=== PATIENT | female | born 1955 | race Caucasian/White ===

== ENCOUNTER 2021-05-20 02:50 | Emergency (ER) | payer MEDICARE, MEDICAID ==
[~2021-05-20] VITALS: Ht 172.7 cm; Wt 818.7 kg
[2021-05-20 07:54] VITALS: BP 120/82
[2021-05-20] MEDS ORDERED: KETOROLAC TROMETH 60MG/2ML VIAL IM ONE (08:00)
== END 2021-05-20 08:16 | disposition home or self-care (01) ==
LOC: ER 02:50
DX: S20.212A Contusion of left front wall of thorax, initial encounter (principal); J44.9 Chronic obstructive pulmonary disease, unspecified; W22.8XXA Striking against or struck by other objects, initial encounter; Y93.89 Activity, other specified; Y92.89 Other specified places as the place of occurrence of the external cause; Y99.8 Other external cause status
CPT/HCPCS: 71045; 93005; 96372; 99283; J1885

== ENCOUNTER → 2021-12-26 | Outpatient (CLI) | payer MEDICARE, MEDICAID ==
[2021-12-26 12:58] LABS: Basophils # (auto) 0 10 ^3/uL (0-0.2); Basophils % (auto) 0.7 % (0.0-2.0); Eosinophils # (auto) 0.1 10 ^3/uL (0-0.8); Hematocrit 44.5 % (36.0-46.0); Hemoglobin 14.8 g/dL (12.2-16.2); Lymphocytes % (auto) 21.3 % (10.0-50.0); Mean Corpuscular Hemoglobin 32.2 pg (28.0-32.0); Mean Corpuscular Hgb Conc. 33.4 g/dL (32.0-36.0); Mean Corpuscular Volume 96.6 fL (80.0-100.0); Monocytes # (auto) 0.4 10 ^3/uL (0-1.3); Monocytes % (auto) 8.2 % (0.0-12.0); Neutrophils # (auto) 3.3 10 ^3/uL (1.6-8.6); Neutrophils % (auto) 66.8 % (37.0-80.0); Nucleated Red Blood Cells % 0.1 %; Red Blood Cells 4.61 10^6/uL (4.0-5.20); Red Cell Distribution Width 12.9 % (11.8-14.3); White Blood Cell 4.9 10^3/uL (4.4-10.8)
[2021-12-26 13:33] LABS: Calcium 8.9 mg/dL (8.5-10.1); Potassium 4.3 mmol/L (3.5-5.1)
[2021-12-26 13:39] LABS: Albumin 3.7 g/dL (3.4-5.0); BUN/Creatinine Ratio 10.4; Bilirubin, Total 0.6 mg/dL (0.2-1.0); Total Protein 7.3 g/dL (6.4-8.2)
== END | disposition home or self-care (01) ==
LOC: LAB 08:11
PROVIDERS: ATTEND Student in an Organized Health Care Education/Training Program
DX: Z00.01 Encounter for general adult medical examination with abnormal findings (principal)
CPT/HCPCS: 36415; 80053; 80061; 83036; 84443; 85025

== ENCOUNTER → 2022-01-03 | Outpatient (CLI) | payer MEDICARE, MEDICAID | END | disposition home or self-care (01) | LOC: LAB 14:34 | PROVIDERS: ATTEND Student in an Organized Health Care Education/Training Program | DX: Z00.01 Encounter for general adult medical examination with abnormal findings (principal) | CPT/HCPCS: 82274 ==

== ENCOUNTER → 2022-03-02 | Outpatient (CLI) | payer OTHER, MEDICAID, MEDICARE ==
[2022-03-02 10:53] LABS: INR 1.02 (0.9-1.15)
[2022-03-02 10:57] LABS: Basophils # (auto) 0 10 ^3/uL (0-0.2); Basophils % (auto) 0.8 % (0.0-2.0); Eosinophils # (auto) 0.1 10 ^3/uL (0-0.8); Eosinophils % (auto) 2.2 % (0.0-7.0); Hematocrit 37.1 % (36.0-46.0); Hemoglobin 12.4 g/dL (12.2-16.2); Lymphocytes # (auto) 1.6 10 ^3/uL (0.4-5.4); Lymphocytes % (auto) 32.5 % (10.0-50.0); Mean Corpuscular Hemoglobin 31.3 pg (28.0-32.0); Mean Corpuscular Hgb Conc. 33.6 g/dL (32.0-36.0); Mean Corpuscular Volume 93.2 fL (80.0-100.0); Monocytes # (auto) 0.7 10 ^3/uL (0-1.3); Monocytes % (auto) 13.4 % (0.0-12.0); Neutrophils # (auto) 2.5 10 ^3/uL (1.6-8.6); Neutrophils % (auto) 51.1 % (37.0-80.0); Nucleated Red Blood Cells % 0.2 %; Red Blood Cells 3.98 10^6/uL (4.0-5.20); Red Cell Distribution Width 13.7 % (11.8-14.3)
[2022-03-02 11:14] LABS: Potassium 4.2 mmol/L (3.5-5.1)
[2022-03-02 11:16] LABS: BUN/Creatinine Ratio 8.3; Calcium 9.7 mg/dL (8.5-10.1)
== END | disposition home or self-care (01) ==
LOC: LAB 10:17
PROVIDERS: ATTEND Student in an Organized Health Care Education/Training Program
DX: R91.1 Solitary pulmonary nodule (principal); Z01.812 Encounter for preprocedural laboratory examination
CPT/HCPCS: 36415; 80048; 85025; 85610; 85730

== ENCOUNTER → 2022-04-24 | Outpatient (CLI) | payer MEDICARE, MEDICAID ==
[2022-04-24 10:08] LABS: Albumin 3.8 g/dL (3.4-5.0); Calcium 9.2 mg/dL (8.5-10.1); Potassium 4.1 mmol/L (3.5-5.1)
[2022-04-24 10:11] LABS: BUN/Creatinine Ratio 7.6; Bilirubin, Total 0.4 mg/dL (0.2-1.0); Total Protein 7.8 g/dL (6.4-8.2)
[2022-04-24 10:27] LABS: Basophils # (auto) 0 10 ^3/uL (0-0.2); Basophils % (auto) 0.6 % (0.0-2.0); Eosinophils # (auto) 0.1 10 ^3/uL (0-0.8); Eosinophils % (auto) 2.5 % (0.0-7.0); Hematocrit 37.2 % (36.0-46.0); Hemoglobin 12.2 g/dL (12.2-16.2); Lymphocytes # (auto) 1.6 10 ^3/uL (0.4-5.4); Lymphocytes % (auto) 30.4 % (10.0-50.0); Mean Corpuscular Hemoglobin 31.1 pg (28.0-32.0); Mean Corpuscular Hgb Conc. 32.8 g/dL (32.0-36.0); Mean Corpuscular Volume 94.9 fL (80.0-100.0); Monocytes # (auto) 0.9 10 ^3/uL (0-1.3); Monocytes % (auto) 16.3 % (0.0-12.0); Neutrophils # (auto) 2.6 10 ^3/uL (1.6-8.6); Neutrophils % (auto) 50.2 % (37.0-80.0); Nucleated Red Blood Cells % 0.2 %; Red Blood Cells 3.92 10^6/uL (4.0-5.20); Red Cell Distribution Width 13.6 % (11.8-14.3); White Blood Cell 5.3 10^3/uL (4.4-10.8)
== END | disposition home or self-care (01) ==
LOC: LAB 09:27
PROVIDERS: ATTEND Internal Medicine
DX: C43.59 Malignant melanoma of other part of trunk (principal); C78.02 Secondary malignant neoplasm of left lung; C78.01 Secondary malignant neoplasm of right lung
CPT/HCPCS: 36415; 80053; 83615; 85025

== ENCOUNTER → 2022-05-24 | Outpatient (CLI) | payer MEDICAID ==
[2022-05-24 10:35] LABS: Basophils # (auto) 0.1 10 ^3/uL (0-0.2); Basophils % (auto) 1.8 % (0.0-2.0); Eosinophils # (auto) 0.2 10 ^3/uL (0-0.8); Eosinophils % (auto) 3.2 % (0.0-7.0); Hematocrit 40.1 % (36.0-46.0); Hemoglobin 13.1 g/dL (12.2-16.2); Lymphocytes # (auto) 1.7 10 ^3/uL (0.4-5.4); Lymphocytes % (auto) 35.9 % (10.0-50.0); Mean Corpuscular Hemoglobin 30.2 pg (28.0-32.0); Mean Corpuscular Hgb Conc. 32.7 g/dL (32.0-36.0); Mean Corpuscular Volume 92.2 fL (80.0-100.0); Monocytes # (auto) 0.6 10 ^3/uL (0-1.3); Monocytes % (auto) 11.6 % (0.0-12.0); Neutrophils # (auto) 2.3 10 ^3/uL (1.6-8.6); Neutrophils % (auto) 47.5 % (37.0-80.0); Nucleated Red Blood Cells % 0.1 %; Red Blood Cells 4.34 10^6/uL (4.0-5.20); Red Cell Distribution Width 13.2 % (11.8-14.3); White Blood Cell 4.8 10^3/uL (4.4-10.8)
[2022-05-24 11:07] LABS: Albumin 3.8 g/dL (3.4-5.0); Calcium 9.2 mg/dL (8.5-10.1); Potassium 4.2 mmol/L (3.5-5.1)
[2022-05-24 11:12] LABS: BUN/Creatinine Ratio 5.6; Bilirubin, Total 0.4 mg/dL (0.2-1.0); Total Protein 7.6 g/dL (6.4-8.2)
== END | disposition home or self-care (01) ==
LOC: LAB 10:16
PROVIDERS: ATTEND Internal Medicine
DX: C43.59 Malignant melanoma of other part of trunk (principal); C78.02 Secondary malignant neoplasm of left lung; C78.01 Secondary malignant neoplasm of right lung
CPT/HCPCS: 36415; 80053; 83615; 85025

== ENCOUNTER → 2022-06-09 | Outpatient (CLI) | payer MEDICAID ==
[2022-06-09 09:58] LABS: Basophils # (auto) 0.1 10 ^3/uL (0-0.2); Eosinophils # (auto) 0.1 10 ^3/uL (0-0.8); Eosinophils % (auto) 2.7 % (0.0-7.0); Hematocrit 39.5 % (36.0-46.0); Lymphocytes # (auto) 1.3 10 ^3/uL (0.4-5.4); Lymphocytes % (auto) 23.1 % (10.0-50.0); Mean Corpuscular Hemoglobin 30.3 pg (28.0-32.0); Mean Corpuscular Volume 91.7 fL (80.0-100.0); Monocytes # (auto) 0.6 10 ^3/uL (0-1.3); Neutrophils # (auto) 3.5 10 ^3/uL (1.6-8.6); Neutrophils % (auto) 62.2 % (37.0-80.0); Red Cell Distribution Width 13.1 % (11.8-14.3); White Blood Cell 5.6 10^3/uL (4.4-10.8)
[2022-06-09 10:26] LABS: Potassium 3.9 mmol/L (3.5-5.1)
[2022-06-09 10:31] LABS: Albumin 3.6 g/dL (3.4-5.0); Bilirubin, Total 0.4 mg/dL (0.2-1.0); Magnesium 2.2 mg/dL (1.6-2.6); Total Protein 7.5 g/dL (6.4-8.2)
[2022-06-09 10:42] LABS: Thyroid Stimulating Hormone 1.34 uIU/mL (0.358-3.74)
== END | disposition home or self-care (01) ==
LOC: LAB 09:31
PROVIDERS: ATTEND Internal Medicine
DX: C43.59 Malignant melanoma of other part of trunk (principal); C78.01 Secondary malignant neoplasm of right lung; C78.02 Secondary malignant neoplasm of left lung
CPT/HCPCS: 36415; 80053; 82306; 83615; 83735; 84436; 84443; 85025

== ENCOUNTER → 2022-06-12 | Outpatient (CLI) | payer MEDICAID ==
[2022-06-12 11:46] LABS: Basophils # (auto) 0.1 10 ^3/uL (0-0.2); Basophils % (auto) 0.9 % (0.0-2.0); Eosinophils # (auto) 0.1 10 ^3/uL (0-0.8); Eosinophils % (auto) 2.1 % (0.0-7.0); Hematocrit 41.2 % (36.0-46.0); Hemoglobin 13.4 g/dL (12.2-16.2); Lymphocytes # (auto) 1.9 10 ^3/uL (0.4-5.4); Mean Corpuscular Hemoglobin 29.9 pg (28.0-32.0); Mean Corpuscular Hgb Conc. 32.6 g/dL (32.0-36.0); Mean Corpuscular Volume 91.7 fL (80.0-100.0); Monocytes # (auto) 0.9 10 ^3/uL (0-1.3); Monocytes % (auto) 14.3 % (0.0-12.0); Neutrophils # (auto) 3.1 10 ^3/uL (1.6-8.6); Neutrophils % (auto) 50.7 % (37.0-80.0); Nucleated Red Blood Cells % 0.1 %; Red Blood Cells 4.49 10^6/uL (4.0-5.20); Red Cell Distribution Width 13.1 % (11.8-14.3)
[2022-06-12 12:23] LABS: INR 0.97 (0.9-1.15); Partial Thromboplastin Time 28.8 sec (24.6-33.4)
== END | disposition home or self-care (01) ==
LOC: LAB 10:39
PROVIDERS: ATTEND Internal Medicine
DX: C43.59 Malignant melanoma of other part of trunk (principal); C78.02 Secondary malignant neoplasm of left lung; C78.01 Secondary malignant neoplasm of right lung
CPT/HCPCS: 36415; 85025; 85610; 85730

== ENCOUNTER → 2022-06-23 | Outpatient (CLI) | payer MEDICARE, MEDICAID ==
[2022-06-23 09:10] LABS: Basophils # (auto) 0 10 ^3/uL (0-0.2); Basophils % (auto) 0.9 % (0.0-2.0); Eosinophils # (auto) 0.2 10 ^3/uL (0-0.8); Eosinophils % (auto) 3.9 % (0.0-7.0); Hematocrit 41.1 % (36.0-46.0); Hemoglobin 13.4 g/dL (12.2-16.2); Lymphocytes # (auto) 1.2 10 ^3/uL (0.4-5.4); Lymphocytes % (auto) 29.8 % (10.0-50.0); Mean Corpuscular Hemoglobin 29.6 pg (28.0-32.0); Mean Corpuscular Hgb Conc. 32.5 g/dL (32.0-36.0); Mean Corpuscular Volume 91.1 fL (80.0-100.0); Monocytes # (auto) 0.5 10 ^3/uL (0-1.3); Monocytes % (auto) 13.5 % (0.0-12.0); Neutrophils % (auto) 51.9 % (37.0-80.0); Nucleated Red Blood Cells % 0.2 %; Red Blood Cells 4.51 10^6/uL (4.0-5.20); Red Cell Distribution Width 13.5 % (11.8-14.3); White Blood Cell 3.9 10^3/uL (4.4-10.8)
[2022-06-23 09:37] LABS: Albumin 3.7 g/dL (3.4-5.0); Calcium 8.7 mg/dL (8.5-10.1); Magnesium 2.1 mg/dL (1.6-2.6); Potassium 4.2 mmol/L (3.5-5.1)
[2022-06-23 09:40] LABS: Bilirubin, Total 0.4 mg/dL (0.2-1.0); Total Protein 7.3 g/dL (6.4-8.2)
[2022-06-23 10:10] LABS: Thyroid Stimulating Hormone 0.74 uIU/mL (0.358-3.74)
== END | disposition home or self-care (01) ==
LOC: LAB 08:55
PROVIDERS: ATTEND Internal Medicine
DX: C43.59 Malignant melanoma of other part of trunk (principal); C78.02 Secondary malignant neoplasm of left lung; C78.01 Secondary malignant neoplasm of right lung
CPT/HCPCS: 36415; 80053; 82306; 83615; 83735; 84436; 84443; 85025

== ENCOUNTER → 2022-06-30 | Outpatient (CLI) | payer MEDICARE, MEDICAID ==
[2022-06-30 09:48] LABS: Basophils # (auto) 0.1 10 ^3/uL (0-0.2); Basophils % (auto) 1.2 % (0.0-2.0); Eosinophils # (auto) 0.2 10 ^3/uL (0-0.8); Eosinophils % (auto) 4.1 % (0.0-7.0); Hematocrit 38.9 % (36.0-46.0); Hemoglobin 12.7 g/dL (12.2-16.2); Mean Corpuscular Hemoglobin 29.3 pg (28.0-32.0); Mean Corpuscular Hgb Conc. 32.7 g/dL (32.0-36.0); Mean Corpuscular Volume 89.5 fL (80.0-100.0); Monocytes # (auto) 0.6 10 ^3/uL (0-1.3); Monocytes % (auto) 13.3 % (0.0-12.0); Neutrophils # (auto) 2.6 10 ^3/uL (1.6-8.6); Neutrophils % (auto) 59.4 % (37.0-80.0); Red Blood Cells 4.34 10^6/uL (4.0-5.20); Red Cell Distribution Width 13.9 % (11.8-14.3); White Blood Cell 4.4 10^3/uL (4.4-10.8)
[2022-06-30 10:45] LABS: Albumin 3.3 g/dL (3.4-5.0); Calcium 8.8 mg/dL (8.5-10.1); Magnesium 2.3 mg/dL (1.6-2.6); Potassium 3.3 mmol/L (3.5-5.1)
[2022-06-30 10:48] LABS: BUN/Creatinine Ratio 6.7; Bilirubin, Total 0.5 mg/dL (0.2-1.0)
[2022-06-30 11:55] LABS: Thyroid Stimulating Hormone 1.21 uIU/mL (0.358-3.74)
== END | disposition home or self-care (01) ==
LOC: LAB 09:21
PROVIDERS: ATTEND Internal Medicine
DX: C43.59 Malignant melanoma of other part of trunk (principal); C78.01 Secondary malignant neoplasm of right lung; C78.02 Secondary malignant neoplasm of left lung
CPT/HCPCS: 36415; 80053; 82306; 83615; 83735; 84436; 84443; 85025

== ENCOUNTER → 2022-07-14 | Outpatient (CLI) | payer OTHER, MEDICAID ==
[2022-07-14 11:57] LABS: Basophils # (auto) 0.1 10 ^3/uL (0-0.2); Basophils % (auto) 1.4 % (0.0-2.0); Eosinophils # (auto) 0 10 ^3/uL (0-0.8); Eosinophils % (auto) 0.2 % (0.0-7.0); Hematocrit 40.2 % (36.0-46.0); Hemoglobin 13.1 g/dL (12.2-16.2); Lymphocytes # (auto) 1.6 10 ^3/uL (0.4-5.4); Lymphocytes % (auto) 15.1 % (10.0-50.0); Mean Corpuscular Hemoglobin 28.6 pg (28.0-32.0); Mean Corpuscular Hgb Conc. 32.7 g/dL (32.0-36.0); Mean Corpuscular Volume 87.7 fL (80.0-100.0); Monocytes # (auto) 1.9 10 ^3/uL (0-1.3); Monocytes % (auto) 17.8 % (0.0-12.0); Neutrophils % (auto) 65.5 % (37.0-80.0); Red Blood Cells 4.59 10^6/uL (4.0-5.20); Red Cell Distribution Width 14.8 % (11.8-14.3); White Blood Cell 10.7 10^3/uL (4.4-10.8)
[2022-07-14 12:26] LABS: Albumin 2.5 g/dL (3.4-5.0); Calcium 8.1 mg/dL (8.5-10.1); Magnesium 2.2 mg/dL (1.6-2.6)
[2022-07-14 12:29] LABS: BUN/Creatinine Ratio 11.3; Bilirubin, Total 0.7 mg/dL (0.2-1.0); Total Protein 6.8 g/dL (6.4-8.2)
[2022-07-14 13:19] LABS: Potassium 2.6 mmol/L (3.5-5.1)
[2022-07-14 13:22] LABS: Thyroid Stimulating Hormone 0.01 uIU/mL (0.358-3.74)
== END | disposition home or self-care (01) ==
LOC: LAB 11:33
PROVIDERS: ATTEND Internal Medicine
DX: C43.59 Malignant melanoma of other part of trunk (principal); C78.02 Secondary malignant neoplasm of left lung; C78.01 Secondary malignant neoplasm of right lung
CPT/HCPCS: 36415; 80053; 82306; 83615; 83735; 84436; 84443; 85025

== ENCOUNTER → 2022-07-21 | Outpatient (CLI) | payer OTHER, MEDICAID ==
[2022-07-21 12:29] LABS: Hematocrit 39.6 % (36.0-46.0); Hemoglobin 12.7 g/dL (12.2-16.2); Mean Corpuscular Hemoglobin 28.1 pg (28.0-32.0); Mean Corpuscular Volume 87.8 fL (80.0-100.0); Red Blood Cells 4.51 10^6/uL (4.0-5.20); Red Cell Distribution Width 15.1 % (11.8-14.3); White Blood Cell 7.7 10^3/uL (4.4-10.8)
[2022-07-21 12:36] LABS: Basophils % (manual) 0 (0.0-2.0); Blast Cells 0; Myelocytes % 0; Promyelocytes % 0; Reactive Lymphocytes 0
[2022-07-21 12:37] LABS: Albumin 2.3 g/dL (3.4-5.0)
[2022-07-21 12:42] LABS: BUN/Creatinine Ratio 11.1; Bilirubin, Total 0.7 mg/dL (0.2-1.0); Calcium 8.3 mg/dL (8.5-10.1); Magnesium 2.2 mg/dL (1.6-2.6); Total Protein 6.8 g/dL (6.4-8.2)
[2022-07-21 13:35] LABS: Band Neutrophils % (manual) 6; Eosinophils % (manual) 5 (0-7); Lymphocytes % (manual) 11 (10.0-50.0); Metamyelocytes % 3; Monocytes % (manual) 12 (0-12)
[2022-07-21 14:04] LABS: Thyroid Stimulating Hormone < 0.01 uIU/mL (0.358-3.74)
[2022-07-21 14:17] LABS: Lactate Dehydrogenase 265 U/L (84-246)
== END | disposition home or self-care (01) ==
LOC: LAB 11:48
PROVIDERS: ATTEND Internal Medicine
DX: C43.59 Malignant melanoma of other part of trunk (principal); C78.01 Secondary malignant neoplasm of right lung; C78.02 Secondary malignant neoplasm of left lung; Z88.0 Allergy status to penicillin; Z88.1 Allergy status to other antibiotic agents
CPT/HCPCS: 36415; 80053; 82306; 83615; 83735; 84436; 84443; 85007; 85027

== ENCOUNTER → 2022-07-26 | Outpatient (CLI) | payer OTHER, MEDICAID | END | disposition home or self-care (01) | LOC: LAB 11:32 | PROVIDERS: ATTEND Internal Medicine | DX: C43.59 Malignant melanoma of other part of trunk (principal); C78.02 Secondary malignant neoplasm of left lung; C78.01 Secondary malignant neoplasm of right lung; Z88.0 Allergy status to penicillin; Z88.8 Allergy status to other drugs, medicaments and biological substances | CPT/HCPCS: 36415; 84436; 84443; 84479; 84480 ==

== ENCOUNTER → 2022-08-02 | Outpatient (CLI) | payer OTHER, MEDICAID ==
[2022-08-02 12:28] LABS: Basophils # (auto) 0.1 10 ^3/uL (0-0.2); Eosinophils # (auto) 0.2 10 ^3/uL (0-0.8); Lymphocytes # (auto) 1.2 10 ^3/uL (0.4-5.4); Monocytes # (auto) 0.5 10 ^3/uL (0-1.3); Monocytes % (auto) 10.8 % (0.0-12.0); White Blood Cell 4.5 10^3/uL (4.4-10.8)
[2022-08-02 12:30] LABS: Basophils % (auto) 1.7 % (0.0-2.0); Eosinophils % (auto) 4.5 % (0.0-7.0); Hematocrit 36.8 % (36.0-46.0); Hemoglobin 11.9 g/dL (12.2-16.2); Lymphocytes % (auto) 26.3 % (10.0-50.0); Mean Corpuscular Hemoglobin 28.5 pg (28.0-32.0); Mean Corpuscular Hgb Conc. 32.2 g/dL (32.0-36.0); Mean Corpuscular Volume 88.4 fL (80.0-100.0); Neutrophils # (auto) 2.6 10 ^3/uL (1.6-8.6); Neutrophils % (auto) 56.7 % (37.0-80.0); Nucleated Red Blood Cells % 0.1 %; Red Blood Cells 4.16 10^6/uL (4.0-5.20); Red Cell Distribution Width 16.3 % (11.8-14.3)
[2022-08-02 12:55] LABS: Calcium 8.3 mg/dL (8.5-10.1)
[2022-08-02 13:00] LABS: Albumin 2.3 g/dL (3.4-5.0); BUN/Creatinine Ratio 6.7; Bilirubin, Total 0.6 mg/dL (0.2-1.0); Magnesium 1.7 mg/dL (1.6-2.6); Total Protein 7.1 g/dL (6.4-8.2)
== END | disposition home or self-care (01) ==
LOC: LAB 11:37
PROVIDERS: ATTEND Internal Medicine
DX: C43.59 Malignant melanoma of other part of trunk (principal); C78.02 Secondary malignant neoplasm of left lung; C78.01 Secondary malignant neoplasm of right lung; Z88.0 Allergy status to penicillin; Z88.8 Allergy status to other drugs, medicaments and biological substances
CPT/HCPCS: 36415; 80053; 82306; 83615; 83735; 85025

== ENCOUNTER → 2022-08-11 | Outpatient (CLI) | payer OTHER, MEDICAID ==
[2022-08-11 11:48] LABS: Basophils # (auto) 0.1 10 ^3/uL (0-0.2); Basophils % (auto) 1.2 % (0.0-2.0); Eosinophils # (auto) 0.1 10 ^3/uL (0-0.8); Eosinophils % (auto) 2.3 % (0.0-7.0); Hematocrit 36.6 % (36.0-46.0); Hemoglobin 12.1 g/dL (12.2-16.2); Lymphocytes # (auto) 1.3 10 ^3/uL (0.4-5.4); Lymphocytes % (auto) 23.9 % (10.0-50.0); Mean Corpuscular Hemoglobin 29.2 pg (28.0-32.0); Mean Corpuscular Volume 88.4 fL (80.0-100.0); Monocytes # (auto) 0.5 10 ^3/uL (0-1.3); Monocytes % (auto) 9.1 % (0.0-12.0); Neutrophils # (auto) 3.4 10 ^3/uL (1.6-8.6); Neutrophils % (auto) 63.5 % (37.0-80.0); Nucleated Red Blood Cells % 0.1 %; Red Blood Cells 4.13 10^6/uL (4.0-5.20); White Blood Cell 5.4 10^3/uL (4.4-10.8)
[2022-08-11 12:09] LABS: Albumin 2.4 g/dL (3.4-5.0); Calcium 8.7 mg/dL (8.5-10.1)
[2022-08-11 12:15] LABS: BUN/Creatinine Ratio 8.4; Bilirubin, Total 0.5 mg/dL (0.2-1.0); Magnesium 1.9 mg/dL (1.6-2.6); Total Protein 7.3 g/dL (6.4-8.2)
== END | disposition home or self-care (01) ==
LOC: LAB 11:33
PROVIDERS: ATTEND Internal Medicine
DX: C43.59 Malignant melanoma of other part of trunk (principal); C78.02 Secondary malignant neoplasm of left lung; C78.01 Secondary malignant neoplasm of right lung; Z88.0 Allergy status to penicillin; Z88.8 Allergy status to other drugs, medicaments and biological substances
CPT/HCPCS: 36415; 80053; 82306; 83615; 83735; 85025

== ENCOUNTER → 2022-09-01 | Outpatient (CLI) | payer OTHER, MEDICAID ==
[2022-09-01 09:44] LABS: Basophils # (auto) 0.1 10 ^3/uL (0-0.2); Basophils % (auto) 1.3 % (0.0-2.0); Eosinophils # (auto) 0.2 10 ^3/uL (0-0.8); Eosinophils % (auto) 3.2 % (0.0-7.0); Hematocrit 36.2 % (36.0-46.0); Hemoglobin 11.8 g/dL (12.2-16.2); Lymphocytes # (auto) 1.6 10 ^3/uL (0.4-5.4); Lymphocytes % (auto) 30.2 % (10.0-50.0); Mean Corpuscular Hemoglobin 29.2 pg (28.0-32.0); Mean Corpuscular Hgb Conc. 32.6 g/dL (32.0-36.0); Mean Corpuscular Volume 89.6 fL (80.0-100.0); Monocytes # (auto) 0.5 10 ^3/uL (0-1.3); Neutrophils # (auto) 2.9 10 ^3/uL (1.6-8.6); Neutrophils % (auto) 55.3 % (37.0-80.0); Nucleated Red Blood Cells % 0.1 %; Red Blood Cells 4.04 10^6/uL (4.0-5.20); Red Cell Distribution Width 18.1 % (11.8-14.3); White Blood Cell 5.3 10^3/uL (4.4-10.8)
[2022-09-01 11:17] LABS: Albumin 2.4 g/dL (3.4-5.0); BUN/Creatinine Ratio 7.8; Calcium 8.5 mg/dL (8.5-10.1); Potassium 3.3 mmol/L (3.5-5.1)
[2022-09-01 11:20] LABS: Bilirubin, Total 0.5 mg/dL (0.2-1.0); Total Protein 7.1 g/dL (6.4-8.2)
== END | disposition home or self-care (01) ==
LOC: LAB 09:29
PROVIDERS: ATTEND Internal Medicine
DX: C43.59 Malignant melanoma of other part of trunk (principal); C78.02 Secondary malignant neoplasm of left lung; C78.01 Secondary malignant neoplasm of right lung; Z88.0 Allergy status to penicillin; Z88.8 Allergy status to other drugs, medicaments and biological substances
CPT/HCPCS: 36415; 80053; 82306; 83615; 83735; 85025

== ENCOUNTER → 2022-09-08 | Outpatient (CLI) | payer OTHER, MEDICAID ==
[~2022-09-08] MED LIST: HYDR-4902 PO; POTA10TA51 PO; PRED10TA PO
[2022-09-08 12:06] LABS: Basophils # (auto) 0.1 10 ^3/uL (0-0.2); Basophils % (auto) 1.7 % (0.0-2.0); Eosinophils # (auto) 0.1 10 ^3/uL (0-0.8); Eosinophils % (auto) 2.6 % (0.0-7.0); Hematocrit 36.8 % (36.0-46.0); Hemoglobin 12.2 g/dL (12.2-16.2); Lymphocytes # (auto) 1.5 10 ^3/uL (0.4-5.4); Lymphocytes % (auto) 30.7 % (10.0-50.0); Mean Corpuscular Hemoglobin 29.8 pg (28.0-32.0); Mean Corpuscular Hgb Conc. 33.2 g/dL (32.0-36.0); Mean Corpuscular Volume 89.7 fL (80.0-100.0); Monocytes # (auto) 0.6 10 ^3/uL (0-1.3); Monocytes % (auto) 11.9 % (0.0-12.0); Neutrophils # (auto) 2.5 10 ^3/uL (1.6-8.6); Neutrophils % (auto) 53.1 % (37.0-80.0); Nucleated Red Blood Cells % 0.2 %; Red Cell Distribution Width 18.1 % (11.8-14.3); White Blood Cell 4.8 10^3/uL (4.4-10.8)
[2022-09-08 13:53] LABS: Albumin 2.4 g/dL (3.4-5.0); BUN/Creatinine Ratio 6.2; Magnesium 2.3 mg/dL (1.6-2.6); Potassium 3.7 mmol/L (3.5-5.1)
[2022-09-08 14:03] LABS: Bilirubin, Total 0.5 mg/dL (0.2-1.0); Total Protein 7.2 g/dL (6.4-8.2)
[2022-09-08 15:05] LABS: Thyroid Stimulating Hormone 90.6 uIU/mL (0.358-3.74)
== END | disposition home or self-care (01) ==
LOC: LAB 11:36
PROVIDERS: ATTEND Internal Medicine
DX: C43.59 Malignant melanoma of other part of trunk (principal); C78.01 Secondary malignant neoplasm of right lung; E55.9 Vitamin D deficiency, unspecified; C78.02 Secondary malignant neoplasm of left lung; Z88.0 Allergy status to penicillin; Z88.8 Allergy status to other drugs, medicaments and biological substances; Z79.899 Other long term (current) drug therapy
CPT/HCPCS: 36415; 80053; 82306; 83615; 83735; 84436; 84443; 85025

== ENCOUNTER → 2022-09-25 | Outpatient (CLI) | payer OTHER, MEDICAID ==
[2022-09-25 12:13] LABS: Basophils # (auto) 0.1 10 ^3/uL (0-0.2); Basophils % (auto) 1.4 % (0.0-2.0); Eosinophils # (auto) 0.1 10 ^3/uL (0-0.8); Eosinophils % (auto) 1.6 % (0.0-7.0); Hematocrit 34.7 % (36.0-46.0); Hemoglobin 11.3 g/dL (12.2-16.2); Lymphocytes # (auto) 1.1 10 ^3/uL (0.4-5.4); Lymphocytes % (auto) 22.6 % (10.0-50.0); Mean Corpuscular Hemoglobin 29.3 pg (28.0-32.0); Mean Corpuscular Hgb Conc. 32.5 g/dL (32.0-36.0); Mean Corpuscular Volume 90.2 fL (80.0-100.0); Monocytes # (auto) 0.7 10 ^3/uL (0-1.3); Monocytes % (auto) 13.7 % (0.0-12.0); Neutrophils # (auto) 2.9 10 ^3/uL (1.6-8.6); Neutrophils % (auto) 60.7 % (37.0-80.0); Nucleated Red Blood Cells % 0.1 %; Red Blood Cells 3.85 10^6/uL (4.0-5.20); Red Cell Distribution Width 18.4 % (11.8-14.3); White Blood Cell 4.8 10^3/uL (4.4-10.8)
[2022-09-25 12:57] LABS: Albumin 2.5 g/dL (3.4-5.0); Bilirubin, Total 1.1 mg/dL (0.2-1.0); Calcium 8.2 mg/dL (8.5-10.1); Magnesium 2.3 mg/dL (1.6-2.6); Potassium 3.1 mmol/L (3.5-5.1); Total Protein 7.5 g/dL (6.4-8.2)
[2022-09-25 15:29] LABS: Thyroid Stimulating Hormone 95.7 uIU/mL (0.358-3.74)
== END | disposition home or self-care (01) ==
LOC: LAB 11:57
PROVIDERS: ATTEND Internal Medicine
DX: C43.59 Malignant melanoma of other part of trunk (principal); C78.01 Secondary malignant neoplasm of right lung; C78.02 Secondary malignant neoplasm of left lung; Z88.8 Allergy status to other drugs, medicaments and biological substances; Z88.0 Allergy status to penicillin; E55.9 Vitamin D deficiency, unspecified; Z79.899 Other long term (current) drug therapy
CPT/HCPCS: 36415; 80053; 82306; 83615; 83735; 84436; 84443; 85025

== ENCOUNTER → 2022-10-06 | Outpatient (CLI) | payer OTHER, MEDICAID ==
[2022-10-06 11:49] LABS: Basophils # (auto) 0.1 10 ^3/uL (0-0.2); Basophils % (auto) 1.4 % (0.0-2.0); Eosinophils # (auto) 0.1 10 ^3/uL (0-0.8); Eosinophils % (auto) 1.3 % (0.0-7.0); Hematocrit 34.1 % (36.0-46.0); Hemoglobin 11.3 g/dL (12.2-16.2); Lymphocytes # (auto) 1.2 10 ^3/uL (0.4-5.4); Lymphocytes % (auto) 25.2 % (10.0-50.0); Mean Corpuscular Hemoglobin 30.2 pg (28.0-32.0); Mean Corpuscular Hgb Conc. 33.1 g/dL (32.0-36.0); Monocytes # (auto) 0.7 10 ^3/uL (0-1.3); Monocytes % (auto) 14.8 % (0.0-12.0); Neutrophils # (auto) 2.6 10 ^3/uL (1.6-8.6); Neutrophils % (auto) 57.3 % (37.0-80.0); Nucleated Red Blood Cells % 0.1 %; Red Blood Cells 3.75 10^6/uL (4.0-5.20); Red Cell Distribution Width 17.7 % (11.8-14.3); White Blood Cell 4.6 10^3/uL (4.4-10.8)
[2022-10-06 12:27] LABS: Albumin 2.3 g/dL (3.4-5.0); Calcium 8.4 mg/dL (8.5-10.1); Magnesium 2.1 mg/dL (1.6-2.6)
[2022-10-06 12:30] LABS: BUN/Creatinine Ratio 7.3; Bilirubin, Total 0.7 mg/dL (0.2-1.0); Total Protein 6.8 g/dL (6.4-8.2)
[2022-10-06 12:33] LABS: Thyroid Stimulating Hormone 61.3 uIU/mL (0.358-3.74)
== END | disposition home or self-care (01) ==
LOC: LAB 11:21
PROVIDERS: ATTEND Internal Medicine
DX: C43.59 Malignant melanoma of other part of trunk (principal); C78.01 Secondary malignant neoplasm of right lung; E11.9 Type 2 diabetes mellitus without complications; E55.9 Vitamin D deficiency, unspecified; C78.02 Secondary malignant neoplasm of left lung; Z88.0 Allergy status to penicillin; Z51.11 Encounter for antineoplastic chemotherapy; Z88.8 Allergy status to other drugs, medicaments and biological substances; Z79.899 Other long term (current) drug therapy
CPT/HCPCS: 36415; 80053; 82306; 83615; 83735; 84436; 84443; 85025

== ENCOUNTER → 2022-10-19 | Outpatient (CLI) | payer OTHER, MEDICAID ==
[2022-10-19 11:32] LABS: Basophils # (auto) 0 10 ^3/uL (0-0.2); Basophils % (auto) 0.4 % (0.0-2.0); Eosinophils # (auto) 0.1 10 ^3/uL (0-0.8); Eosinophils % (auto) 1.4 % (0.0-7.0); Hematocrit 36.9 % (36.0-46.0); Hemoglobin 12.5 g/dL (12.2-16.2); Lymphocytes # (auto) 1.1 10 ^3/uL (0.4-5.4); Lymphocytes % (auto) 22.5 % (10.0-50.0); Mean Corpuscular Hemoglobin 31.1 pg (28.0-32.0); Mean Corpuscular Hgb Conc. 33.9 g/dL (32.0-36.0); Monocytes # (auto) 0.7 10 ^3/uL (0-1.3); Monocytes % (auto) 12.8 % (0.0-12.0); Neutrophils # (auto) 3.2 10 ^3/uL (1.6-8.6); Neutrophils % (auto) 62.9 % (37.0-80.0); Red Blood Cells 4.01 10^6/uL (4.0-5.20); Red Cell Distribution Width 16.4 % (11.8-14.3); White Blood Cell 5.1 10^3/uL (4.4-10.8)
[2022-10-19 12:00] LABS: Albumin 2.7 g/dL (3.4-5.0); Calcium 8.8 mg/dL (8.5-10.1); Magnesium 2.2 mg/dL (1.6-2.6)
[2022-10-19 12:04] LABS: BUN/Creatinine Ratio 6.5; Bilirubin, Total 0.7 mg/dL (0.2-1.0); Total Protein 7.3 g/dL (6.4-8.2)
[2022-10-20 14:31] LABS: Potassium 2.6 mmol/L (3.5-5.1)
== END | disposition home or self-care (01) ==
LOC: LAB 11:14
PROVIDERS: ATTEND Internal Medicine
DX: C43.59 Malignant melanoma of other part of trunk (principal); C78.01 Secondary malignant neoplasm of right lung; C78.02 Secondary malignant neoplasm of left lung; E55.9 Vitamin D deficiency, unspecified; Z88.0 Allergy status to penicillin; Z88.8 Allergy status to other drugs, medicaments and biological substances; Z51.11 Encounter for antineoplastic chemotherapy
CPT/HCPCS: 36415; 80053; 82306; 83615; 83735; 85025

== ENCOUNTER → 2022-11-03 | Outpatient (CLI) | payer OTHER, MEDICAID ==
[2022-11-03 12:52] LABS: Basophils # (auto) 0.1 10 ^3/uL (0-0.2); Basophils % (auto) 0.9 % (0.0-2.0); Eosinophils # (auto) 0 10 ^3/uL (0-0.8); Eosinophils % (auto) 0.3 % (0.0-7.0); Hematocrit 37.9 % (36.0-46.0); Hemoglobin 12.6 g/dL (12.2-16.2); Lymphocytes # (auto) 0.8 10 ^3/uL (0.4-5.4); Lymphocytes % (auto) 13.1 % (10.0-50.0); Mean Corpuscular Hemoglobin 30.8 pg (28.0-32.0); Mean Corpuscular Hgb Conc. 33.3 g/dL (32.0-36.0); Mean Corpuscular Volume 92.6 fL (80.0-100.0); Monocytes # (auto) 0.8 10 ^3/uL (0-1.3); Monocytes % (auto) 14.1 % (0.0-12.0); Neutrophils # (auto) 4.1 10 ^3/uL (1.6-8.6); Neutrophils % (auto) 71.6 % (37.0-80.0); Red Blood Cells 4.09 10^6/uL (4.0-5.20); Red Cell Distribution Width 15.4 % (11.8-14.3); White Blood Cell 5.8 10^3/uL (4.4-10.8)
[2022-11-03 13:03] LABS: Albumin 2.7 g/dL (3.4-5.0); Calcium 8.2 mg/dL (8.5-10.1); Magnesium 2.1 mg/dL (1.6-2.6)
[2022-11-03 13:07] LABS: BUN/Creatinine Ratio 8.2; Bilirubin, Total 0.8 mg/dL (0.2-1.0); Total Protein 7.2 g/dL (6.4-8.2)
[2022-11-03 15:17] LABS: Potassium 2.3 mmol/L (3.5-5.1)
== END | disposition home or self-care (01) ==
LOC: LAB 11:57
PROVIDERS: ATTEND Internal Medicine
DX: C43.59 Malignant melanoma of other part of trunk (principal); C78.01 Secondary malignant neoplasm of right lung; C78.02 Secondary malignant neoplasm of left lung; Z88.0 Allergy status to penicillin; Z88.8 Allergy status to other drugs, medicaments and biological substances; Z79.899 Other long term (current) drug therapy
CPT/HCPCS: 36415; 80053; 82306; 83615; 83735; 84436; 84443; 85025

== ENCOUNTER 2022-11-04 09:41 | Inpatient (IN) | payer OTHER, MEDICAID ==
[~2022-11-04] VITALS: Ht 165.1 cm; Wt 72.9 kg
[2022-11-04] MEDS ORDERED: SODIUM CHLORIDE 0.9% 1,000 ML IV ONE (10:30)
[2022-11-04] MEDS ORDERED: SODIUM CHLORIDE 0.9% 1,000 ML IVB ONE (10:30)
[2022-11-04 10:54] LABS: Basophils # (auto) 0.1 10 ^3/uL (0-0.2); Basophils % (auto) 1.1 % (0.0-2.0); Eosinophils # (auto) 0 10 ^3/uL (0-0.8); Eosinophils % (auto) 0.7 % (0.0-7.0); Hemoglobin 12.3 g/dL (12.2-16.2); Lymphocytes # (auto) 0.8 10 ^3/uL (0.4-5.4); Lymphocytes % (auto) 16.5 % (10.0-50.0); Mean Corpuscular Hemoglobin 30.9 pg (28.0-32.0); Mean Corpuscular Hgb Conc. 33.2 g/dL (32.0-36.0); Mean Corpuscular Volume 93.2 fL (80.0-100.0); Monocytes # (auto) 0.7 10 ^3/uL (0-1.3); Monocytes % (auto) 13.6 % (0.0-12.0); Neutrophils # (auto) 3.3 10 ^3/uL (1.6-8.6); Neutrophils % (auto) 68.1 % (37.0-80.0); Red Blood Cells 3.97 10^6/uL (4.0-5.20); Red Cell Distribution Width 15.1 % (11.8-14.3); White Blood Cell 4.8 10^3/uL (4.4-10.8)
[2022-11-04 11:08] LABS: Albumin 2.5 g/dL (3.4-5.0); BUN/Creatinine Ratio 10.8; Calcium 8.2 mg/dL (8.5-10.1); Magnesium 2.1 mg/dL (1.6-2.6)
[2022-11-04 11:10] LABS: Bilirubin, Total 0.7 mg/dL (0.2-1.0); Total Protein 6.5 g/dL (6.4-8.2)
[2022-11-04 11:21] LABS: Potassium 2.7 mmol/L (3.5-5.1)
[2022-11-04] MEDS ORDERED: POTASSIUM EFFERVESENT TAB 25 MEQ PO ONE ×3 (11:30→21:15)
[2022-11-04 13:56] LABS: INR 0.98 (0.9-1.15); Partial Thromboplastin Time 28.9 sec (24.6-33.4)
[2022-11-04] MEDS ORDERED: LEVOTHYROXINE SODIUM 100 MCG/5 ML INJ IV ONE (18:15)
[2022-11-04] MEDS ORDERED: HYDROmorphone HCL 2 MG/ML VL/or syr IV PRN (19:15)
[2022-11-04] MEDS ORDERED: HYDROcodone-ACET 5/325MG TAB PO PRN (19:15)
[2022-11-04] MEDS ORDERED: DOCUSATE SOD 100 MG CAP PO PRN (19:15)
[2022-11-04] MEDS ORDERED: ACETAMINOPHEN 325 MG TAB PO PRN (19:15)
[2022-11-04] MEDS ORDERED: ONDANSETRON HCL 4 MG/2 ML VIAL IV PRN (19:15)
[2022-11-04 20:52] LABS: Albumin 2.3 g/dL (3.4-5.0); BUN/Creatinine Ratio 9.9; Calcium 7.6 mg/dL (8.5-10.1)
[2022-11-04 20:55] LABS: Bilirubin, Total 0.7 mg/dL (0.2-1.0); Total Protein 6.5 g/dL (6.4-8.2)
[2022-11-04 21:05] LABS: Potassium 2.7 mmol/L (3.5-5.1)
[2022-11-04] MEDS: SODIUM CHLOR 0.9% PF (SALINE LOCK) 10ML VIAL/SYR IV SCH (22:00)
[2022-11-04 23:18] LABS: Urine Bacteria FEW /hpf (None Seen); Urine Blood Negative /uL (Negative); Urine Mucus FEW (None Seen); Urine Specific Gravity 1.012 (1.001-1.035); Urine WBC 2 /hpf (0 - 5)
[2022-11-04 23:36] VITALS: BP 130/78
[2022-11-05] VITALS (7 sets, daily range): BP systolic 112–138; BP diastolic 73–90
[2022-11-05] MEDS: SODIUM CHLOR 0.9% PF (SALINE LOCK) 10ML VIAL/SYR IV SCH (06:00)
[2022-11-05 15:02] LABS: BUN/Creatinine Ratio 8.6; Calcium 7.8 mg/dL (8.5-10.1); Potassium 3.4 mmol/L (3.5-5.1)
[2022-11-05] MEDS ORDERED: POTASSIUM CHL 20MEQ/100ML 100 ML IV ONE (16:30)
[2022-11-05] MEDS: SOD CHL 0.9%/ KCL 40MEQ 1,000 ML IV SCH (17:45)
[2022-11-06 04:54] VITALS: BP 118/75
[2022-11-06 05:32] LABS: Basophils # (auto) 0.1 10 ^3/uL (0-0.2); Basophils % (auto) 0.8 % (0.0-2.0); Eosinophils # (auto) 0 10 ^3/uL (0-0.8); Eosinophils % (auto) 0.8 % (0.0-7.0); Hematocrit 33.6 % (36.0-46.0); Hemoglobin 11.1 g/dL (12.2-16.2); Lymphocytes # (auto) 0.6 10 ^3/uL (0.4-5.4); Lymphocytes % (auto) 9.9 % (10.0-50.0); Mean Corpuscular Hgb Conc. 33.2 g/dL (32.0-36.0); Mean Corpuscular Volume 93.4 fL (80.0-100.0); Monocytes % (auto) 15.8 % (0.0-12.0); Neutrophils # (auto) 4.5 10 ^3/uL (1.6-8.6); Neutrophils % (auto) 72.7 % (37.0-80.0); Red Blood Cells 3.59 10^6/uL (4.0-5.20); White Blood Cell 6.2 10^3/uL (4.4-10.8)
[2022-11-06 05:59] LABS: Albumin 2.3 g/dL (3.4-5.0); Calcium 7.6 mg/dL (8.5-10.1); Potassium 3.5 mmol/L (3.5-5.1)
[2022-11-06 06:01] LABS: BUN/Creatinine Ratio 11.1
[2022-11-06 06:15] LABS: Bilirubin, Total 0.7 mg/dL (0.2-1.0); Total Protein 6.1 g/dL (6.4-8.2)
[2022-11-06 09:00] VITALS: BP 129/83
[2022-11-06] MEDS: LEVOTHYROXINE SODIUM 100 MCG TAB PO SCH (12:28)
[2022-11-06] MEDS: SERTRALINE HCL 50 MG TAB PO SCH (12:29)
[2022-11-06 13:00] VITALS: BP 134/89
[2022-11-06] MEDS: methylPREDNISolone SOD SUCC 125 MG/2 ML VL IV SCH ×2 (13:32→21:48)
[2022-11-06] MEDS: SODIUM CHLOR 0.9% PF (SALINE LOCK) 10ML VIAL/SYR IV SCH ×3 (13:32→21:47)
[2022-11-06 14:31] LABS: Hepatitis A Ab IgM Negative
[2022-11-06 14:32] LABS: Hepatitis B Core IgM Negative
[2022-11-06 14:33] LABS: Hepatitis C Antibody Negative (Negative)
[2022-11-06 17:00] VITALS: BP 142/89
[2022-11-06] MEDS: SOD CHL 0.9%/ KCL 40MEQ 1,000 ML IV SCH (17:41)
[2022-11-06 22:00] VITALS: BP 136/86
[2022-11-07 05:00] VITALS: BP 149/89
[2022-11-07] MEDS: LEVOTHYROXINE SODIUM 100 MCG TAB PO SCH (05:24)
[2022-11-07] MEDS: SODIUM CHLOR 0.9% PF (SALINE LOCK) 10ML VIAL/SYR IV SCH ×3 (05:24→21:34)
[2022-11-07 06:15] LABS: Basophils # (auto) 0 10 ^3/uL (0-0.2); Basophils % (auto) 0.1 % (0.0-2.0); Eosinophils # (auto) 0 10 ^3/uL (0-0.8); Hematocrit 33.4 % (36.0-46.0); Hemoglobin 11.3 g/dL (12.2-16.2); Lymphocytes # (auto) 0.4 10 ^3/uL (0.4-5.4); Lymphocytes % (auto) 7.5 % (10.0-50.0); Mean Corpuscular Hemoglobin 31.4 pg (28.0-32.0); Mean Corpuscular Hgb Conc. 33.7 g/dL (32.0-36.0); Mean Corpuscular Volume 93.1 fL (80.0-100.0); Monocytes # (auto) 0.4 10 ^3/uL (0-1.3); Monocytes % (auto) 7.1 % (0.0-12.0); Neutrophils # (auto) 4.9 10 ^3/uL (1.6-8.6); Neutrophils % (auto) 85.3 % (37.0-80.0); Red Blood Cells 3.59 10^6/uL (4.0-5.20); Red Cell Distribution Width 15.4 % (11.8-14.3); White Blood Cell 5.7 10^3/uL (4.4-10.8)
[2022-11-07 06:22] LABS: Calcium 8.1 mg/dL (8.5-10.1); Potassium 3.5 mmol/L (3.5-5.1)
[2022-11-07 08:41] LABS: BUN/Creatinine Ratio 0.6
[2022-11-07 09:00] VITALS: BP 136/81
[2022-11-07] MEDS: methylPREDNISolone SOD SUCC 125 MG/2 ML VL IV SCH ×2 (09:51→21:26)
[2022-11-07] MEDS: SERTRALINE HCL 50 MG TAB PO SCH (09:51)
[2022-11-07 13:00] VITALS: BP 142/87
[2022-11-07 17:00] VITALS: BP 142/88
[2022-11-07 22:00] VITALS: BP 146/96
[2022-11-08 05:00] VITALS: BP 143/95
[2022-11-08] MEDS: SODIUM CHLOR 0.9% PF (SALINE LOCK) 10ML VIAL/SYR IV SCH ×3 (06:01→21:27)
[2022-11-08] MEDS: LEVOTHYROXINE SODIUM 100 MCG TAB PO SCH (06:05)
[2022-11-08 06:51] LABS: Calcium 8.5 mg/dL (8.5-10.1); Potassium 3.5 mmol/L (3.5-5.1)
[2022-11-08 06:54] LABS: Basophils # (auto) 0 10 ^3/uL (0-0.2); Basophils % (auto) 0.4 % (0.0-2.0); Eosinophils # (auto) 0 10 ^3/uL (0-0.8); Hematocrit 35.5 % (36.0-46.0); Hemoglobin 11.8 g/dL (12.2-16.2); Lymphocytes # (auto) 0.4 10 ^3/uL (0.4-5.4); Mean Corpuscular Hemoglobin 31.2 pg (28.0-32.0); Mean Corpuscular Hgb Conc. 33.3 g/dL (32.0-36.0); Mean Corpuscular Volume 93.7 fL (80.0-100.0); Monocytes # (auto) 0.3 10 ^3/uL (0-1.3); Monocytes % (auto) 6.5 % (0.0-12.0); Neutrophils # (auto) 4.5 10 ^3/uL (1.6-8.6); Neutrophils % (auto) 85.1 % (37.0-80.0); Nucleated Red Blood Cells % 0.2 %; Red Blood Cells 3.78 10^6/uL (4.0-5.20); Red Cell Distribution Width 15.4 % (11.8-14.3); White Blood Cell 5.3 10^3/uL (4.4-10.8)
[2022-11-08 08:31] VITALS: BP 158/83
[2022-11-08] MEDS: methylPREDNISolone SOD SUCC 125 MG/2 ML VL IV SCH ×2 (10:12→21:27)
[2022-11-08] MEDS: SERTRALINE HCL 50 MG TAB PO SCH (10:13)
[2022-11-08 12:28] VITALS: BP 151/97
[2022-11-08 16:17] VITALS: BP 160/104
[2022-11-08 22:00] VITALS: BP 137/90
[2022-11-09 05:00] VITALS: BP 157/98
[2022-11-09] MEDS: LEVOTHYROXINE SODIUM 100 MCG TAB PO SCH (06:15)
[2022-11-09] MEDS: SODIUM CHLOR 0.9% PF (SALINE LOCK) 10ML VIAL/SYR IV SCH ×3 (06:16→21:20)
[2022-11-09 08:41] VITALS: BP 157/103
[2022-11-09] MEDS: methylPREDNISolone SOD SUCC 125 MG/2 ML VL IV SCH (10:00)
[2022-11-09] MEDS: SERTRALINE HCL 50 MG TAB PO SCH (11:40)
[2022-11-09 12:31] VITALS: BP 145/94
[2022-11-09 16:44] VITALS: BP 149/92
[2022-11-09 20:00] VITALS: BP 148/94
[2022-11-09 22:00] VITALS: BP 148/104
[2022-11-10] MEDS ORDERED: methylPREDNISolone SOD SUCC 40 MG/ML VL ONE (05:37)
[2022-11-10] MEDS: SODIUM CHLOR 0.9% PF (SALINE LOCK) 10ML VIAL/SYR IV SCH ×2 (06:30→16:40)
[2022-11-10] MEDS: LEVOTHYROXINE SODIUM 100 MCG TAB PO SCH (06:33)
[2022-11-10 06:40] LABS: Basophils # (auto) 0 10 ^3/uL (0-0.2); Basophils % (auto) 0.1 % (0.0-2.0); Eosinophils # (auto) 0 10 ^3/uL (0-0.8); Eosinophils % (auto) 0.7 % (0.0-7.0); Hematocrit 37.2 % (36.0-46.0); Hemoglobin 12.9 g/dL (12.2-16.2); Lymphocytes % (auto) 17.1 % (10.0-50.0); Mean Corpuscular Hgb Conc. 34.8 g/dL (32.0-36.0); Monocytes # (auto) 0.9 10 ^3/uL (0-1.3); Monocytes % (auto) 15.1 % (0.0-12.0); Neutrophils # (auto) 3.9 10 ^3/uL (1.6-8.6); Red Blood Cells 4.05 10^6/uL (4.0-5.20); Red Cell Distribution Width 15.1 % (11.8-14.3); White Blood Cell 5.9 10^3/uL (4.4-10.8)
[2022-11-10 07:00] LABS: Albumin 2.7 g/dL (3.4-5.0); BUN/Creatinine Ratio 26.9; Calcium 8.1 mg/dL (8.5-10.1); Potassium 3.1 mmol/L (3.5-5.1)
[2022-11-10 07:02] LABS: Bilirubin, Total 0.4 mg/dL (0.2-1.0); Total Protein 6.4 g/dL (6.4-8.2)
[2022-11-10 09:07] VITALS: BP 147/102
[2022-11-10] MEDS ORDERED: PRED10TA PO (10:29)
[2022-11-10] MEDS ORDERED: HYDR-4902 PO (10:29)
[2022-11-10] MEDS ORDERED: predniSONE 5 MG TAB PO ONE (10:30)
[2022-11-10] MEDS ORDERED: POTA10TA51 PO (10:31)
[2022-11-10] MEDS: SERTRALINE HCL 50 MG TAB PO SCH (11:22)
[2022-11-10 13:00] VITALS: BP 137/93
[2022-11-10] MEDS ORDERED: predniSONE 5 MG TAB PO SCH (22:00)
== END 2022-11-10 19:00 | disposition home health service (06) | DRG 640 ==
LOC: ER 09:41 → EDBD 09:41 → TELE 19:15 → TELE-WESTW 23:20 → WEST WING 23:21
PROVIDERS: ADMIT Internal Medicine; ATTEND Family Medicine
DX: E87.6 Hypokalemia (principal); E43 Unspecified severe protein-calorie malnutrition; J44.1 Chronic obstructive pulmonary disease with (acute) exacerbation; C78.00 Secondary malignant neoplasm of unspecified lung; C79.31 Secondary malignant neoplasm of brain; I48.91 Unspecified atrial fibrillation; C43.9 Malignant melanoma of skin, unspecified; E03.9 Hypothyroidism, unspecified; F32.A Depression, unspecified; K76.0 Fatty (change of) liver, not elsewhere classified; Z68.27 Body mass index [BMI] 27.0-27.9, adult; Z87.891 Personal history of nicotine dependence; Z80.49 Family history of malignant neoplasm of other genital organs; Z80.3 Family history of malignant neoplasm of breast; Z80.0 Family history of malignant neoplasm of digestive organs; Z88.0 Allergy status to penicillin; Z88.8 Allergy status to other drugs, medicaments and biological substances
CPT/HCPCS: 36415; 70450; 70551; 71045; 76700; 80048; 80053; 80074; 81001; 82024; 82088; 82533; 83735; 84133; 84443; 84484; 85025; 85610; 85730; 87426; 93005; 96360; 97110; 97116; 97163; 97530; G0378; J3480

== ENCOUNTER → 2022-11-16 | Outpatient (CLI) | payer OTHER, MEDICAID ==
[2022-11-16 12:20] LABS: Basophils # (auto) 0 10 ^3/uL (0-0.2); Basophils % (auto) 0.5 % (0.0-2.0); Eosinophils # (auto) 0 10 ^3/uL (0-0.8); Eosinophils % (auto) 0.1 % (0.0-7.0); Hematocrit 40.9 % (36.0-46.0); Hemoglobin 13.3 g/dL (12.2-16.2); Lymphocytes # (auto) 0.6 10 ^3/uL (0.4-5.4); Lymphocytes % (auto) 8.3 % (10.0-50.0); Mean Corpuscular Hemoglobin 30.6 pg (28.0-32.0); Mean Corpuscular Hgb Conc. 32.4 g/dL (32.0-36.0); Mean Corpuscular Volume 94.2 fL (80.0-100.0); Monocytes # (auto) 0.7 10 ^3/uL (0-1.3); Monocytes % (auto) 9.3 % (0.0-12.0); Neutrophils # (auto) 6.3 10 ^3/uL (1.6-8.6); Neutrophils % (auto) 81.8 % (37.0-80.0); Nucleated Red Blood Cells % 0.2 %; Red Blood Cells 4.35 10^6/uL (4.0-5.20); Red Cell Distribution Width 15.6 % (11.8-14.3); White Blood Cell 7.7 10^3/uL (4.4-10.8)
[2022-11-16 12:48] LABS: Albumin 3.2 g/dL (3.4-5.0); BUN/Creatinine Ratio 20.5; Potassium 4.1 mmol/L (3.5-5.1)
[2022-11-16 12:51] LABS: Bilirubin, Total 0.5 mg/dL (0.2-1.0)
== END | disposition home or self-care (01) ==
LOC: LAB 11:59
PROVIDERS: ATTEND Internal Medicine
DX: C43.59 Malignant melanoma of other part of trunk (principal); C78.01 Secondary malignant neoplasm of right lung; E55.9 Vitamin D deficiency, unspecified; C78.02 Secondary malignant neoplasm of left lung; Z51.11 Encounter for antineoplastic chemotherapy; Z88.0 Allergy status to penicillin; Z88.8 Allergy status to other drugs, medicaments and biological substances; Z79.899 Other long term (current) drug therapy
CPT/HCPCS: 36415; 80053; 82306; 83615; 83735; 84436; 84443; 85025

== ENCOUNTER → 2022-11-30 | Outpatient (CLI) | payer OTHER, MEDICAID ==
[2022-11-30 12:24] LABS: Basophils # (auto) 0.1 10 ^3/uL (0-0.2); Basophils % (auto) 0.7 % (0.0-2.0); Eosinophils # (auto) 0 10 ^3/uL (0-0.8); Eosinophils % (auto) 0.2 % (0.0-7.0); Hematocrit 41.2 % (36.0-46.0); Hemoglobin 13.3 g/dL (12.2-16.2); Lymphocytes # (auto) 0.7 10 ^3/uL (0.4-5.4); Lymphocytes % (auto) 11.1 % (10.0-50.0); Mean Corpuscular Hemoglobin 31.1 pg (28.0-32.0); Mean Corpuscular Hgb Conc. 32.3 g/dL (32.0-36.0); Mean Corpuscular Volume 96.2 fL (80.0-100.0); Monocytes # (auto) 0.5 10 ^3/uL (0-1.3); Neutrophils # (auto) 5.4 10 ^3/uL (1.6-8.6); Red Blood Cells 4.28 10^6/uL (4.0-5.20); Red Cell Distribution Width 15.5 % (11.8-14.3); White Blood Cell 6.8 10^3/uL (4.4-10.8)
[2022-11-30 13:24] LABS: Albumin 3.6 g/dL (3.4-5.0); Calcium 9.2 mg/dL (8.5-10.1); Magnesium 2.4 mg/dL (1.6-2.6); Potassium 4.1 mmol/L (3.5-5.1)
[2022-11-30 13:28] LABS: BUN/Creatinine Ratio 18.5; Bilirubin, Total 0.4 mg/dL (0.2-1.0); Total Protein 7.1 g/dL (6.4-8.2)
== END | disposition home or self-care (01) ==
LOC: LAB 11:57
PROVIDERS: ATTEND Internal Medicine
DX: C43.59 Malignant melanoma of other part of trunk (principal); C78.01 Secondary malignant neoplasm of right lung; C78.02 Secondary malignant neoplasm of left lung; Z51.11 Encounter for antineoplastic chemotherapy; Z88.0 Allergy status to penicillin; Z88.8 Allergy status to other drugs, medicaments and biological substances; Z79.899 Other long term (current) drug therapy
CPT/HCPCS: 36415; 80053; 82306; 83615; 83735; 85025

== ENCOUNTER → 2022-12-22 | Outpatient (CLI) | payer OTHER, MEDICAID ==
[2022-12-22 10:37] LABS: Basophils # (auto) 0 10 ^3/uL (0-0.2); Basophils % (auto) 0.7 % (0.0-2.0); Eosinophils # (auto) 0.1 10 ^3/uL (0-0.8); Eosinophils % (auto) 1.3 % (0.0-7.0); Hematocrit 36.9 % (36.0-46.0); Hemoglobin 12.4 g/dL (12.2-16.2); Lymphocytes # (auto) 1.1 10 ^3/uL (0.4-5.4); Lymphocytes % (auto) 20.3 % (10.0-50.0); Mean Corpuscular Hemoglobin 31.6 pg (28.0-32.0); Mean Corpuscular Hgb Conc. 33.5 g/dL (32.0-36.0); Mean Corpuscular Volume 94.3 fL (80.0-100.0); Monocytes # (auto) 0.5 10 ^3/uL (0-1.3); Monocytes % (auto) 9.9 % (0.0-12.0); Neutrophils # (auto) 3.7 10 ^3/uL (1.6-8.6); Neutrophils % (auto) 67.8 % (37.0-80.0); Nucleated Red Blood Cells % 0.1 %; Red Blood Cells 3.92 10^6/uL (4.0-5.20); Red Cell Distribution Width 15.1 % (11.8-14.3); White Blood Cell 5.4 10^3/uL (4.4-10.8)
[2022-12-22 11:36] LABS: Albumin 2.9 g/dL (3.4-5.0); Bilirubin, Total 0.3 mg/dL (0.2-1.0); Magnesium 2.2 mg/dL (1.6-2.6); Potassium 3.9 mmol/L (3.5-5.1); Total Protein 6.7 g/dL (6.4-8.2)
== END | disposition home or self-care (01) ==
LOC: LAB 10:06
PROVIDERS: ATTEND Internal Medicine
DX: Z51.11 Encounter for antineoplastic chemotherapy (principal); C78.01 Secondary malignant neoplasm of right lung; C78.02 Secondary malignant neoplasm of left lung; C43.59 Malignant melanoma of other part of trunk; Z79.899 Other long term (current) drug therapy
CPT/HCPCS: 36415; 80053; 82306; 83615; 83735; 84439; 84443; 85025

== ENCOUNTER → 2023-01-03 | Outpatient (CLI) | payer OTHER ==
[2023-01-03 11:04] LABS: Basophils # (auto) 0.1 10 ^3/uL (0-0.2); Basophils % (auto) 0.9 % (0.0-2.0); Eosinophils # (auto) 0.2 10 ^3/uL (0-0.8); Hematocrit 36.4 % (36.0-46.0); Hemoglobin 12.2 g/dL (12.2-16.2); Lymphocytes # (auto) 1.5 10 ^3/uL (0.4-5.4); Lymphocytes % (auto) 19.9 % (10.0-50.0); Mean Corpuscular Hemoglobin 30.8 pg (28.0-32.0); Mean Corpuscular Hgb Conc. 33.5 g/dL (32.0-36.0); Mean Corpuscular Volume 92.1 fL (80.0-100.0); Monocytes # (auto) 0.9 10 ^3/uL (0-1.3); Monocytes % (auto) 11.4 % (0.0-12.0); Neutrophils # (auto) 4.9 10 ^3/uL (1.6-8.6); Neutrophils % (auto) 64.8 % (37.0-80.0); Nucleated Red Blood Cells % 0.3 %; Red Blood Cells 3.95 10^6/uL (4.0-5.20); Red Cell Distribution Width 15.6 % (11.8-14.3); White Blood Cell 7.6 10^3/uL (4.4-10.8)
[2023-01-03 11:47] LABS: Albumin 2.7 g/dL (3.4-5.0); Calcium 9.1 mg/dL (8.5-10.1); Magnesium 2.1 mg/dL (1.6-2.6); Potassium 4.3 mmol/L (3.5-5.1)
[2023-01-03 11:49] LABS: Bilirubin, Total 0.3 mg/dL (0.2-1.0); Total Protein 6.5 g/dL (6.4-8.2)
== END | disposition home or self-care (01) ==
LOC: LAB 10:31
PROVIDERS: ATTEND Internal Medicine
DX: Z51.11 Encounter for antineoplastic chemotherapy (principal); C43.59 Malignant melanoma of other part of trunk; C78.01 Secondary malignant neoplasm of right lung; C78.02 Secondary malignant neoplasm of left lung; E55.9 Vitamin D deficiency, unspecified
CPT/HCPCS: 36415; 80053; 82306; 83615; 83735; 85025

== ENCOUNTER → 2023-01-19 | Outpatient (CLI) | payer OTHER ==
[2023-01-19 11:51] LABS: Basophils # (auto) 0.1 10 ^3/uL (0-0.2); Basophils % (auto) 1.3 % (0.0-2.0); Eosinophils # (auto) 0.2 10 ^3/uL (0-0.8); Eosinophils % (auto) 4.8 % (0.0-7.0); Hematocrit 36.5 % (36.0-46.0); Hemoglobin 12.1 g/dL (12.2-16.2); Lymphocytes # (auto) 1.3 10 ^3/uL (0.4-5.4); Lymphocytes % (auto) 25.1 % (10.0-50.0); Mean Corpuscular Hemoglobin 30.7 pg (28.0-32.0); Mean Corpuscular Hgb Conc. 33.2 g/dL (32.0-36.0); Mean Corpuscular Volume 92.4 fL (80.0-100.0); Monocytes # (auto) 0.6 10 ^3/uL (0-1.3); Monocytes % (auto) 11.1 % (0.0-12.0); Neutrophils % (auto) 57.7 % (37.0-80.0); Nucleated Red Blood Cells % 0.1 %; Red Blood Cells 3.95 10^6/uL (4.0-5.20); Red Cell Distribution Width 15.9 % (11.8-14.3); White Blood Cell 5.2 10^3/uL (4.4-10.8)
[2023-01-19 12:53] LABS: Albumin 2.7 g/dL (3.4-5.0); Calcium 8.9 mg/dL (8.5-10.1); Magnesium 2.2 mg/dL (1.6-2.6); Potassium 4.1 mmol/L (3.5-5.1)
[2023-01-19 12:54] LABS: Bilirubin, Total 0.2 mg/dL (0.2-1.0); Total Protein 6.7 g/dL (6.4-8.2)
[2023-01-19 13:02] LABS: Thyroid Stimulating Hormone 8.13 uIU/mL (0.358-3.74)
== END | disposition home or self-care (01) ==
LOC: LAB 11:37
PROVIDERS: ATTEND Internal Medicine
DX: Z51.11 Encounter for antineoplastic chemotherapy (principal); C43.59 Malignant melanoma of other part of trunk; C78.01 Secondary malignant neoplasm of right lung; C78.02 Secondary malignant neoplasm of left lung; Z88.0 Allergy status to penicillin; Z88.8 Allergy status to other drugs, medicaments and biological substances; Z79.899 Other long term (current) drug therapy
CPT/HCPCS: 36415; 80053; 82306; 83615; 83735; 84436; 84443; 85025

== ENCOUNTER → 2023-01-30 | Outpatient (CLI) | payer OTHER, MEDICAID ==
[2023-01-30 10:29] LABS: Basophils # (auto) 0.1 10 ^3/uL (0-0.2); Basophils % (auto) 1.5 % (0.0-2.0); Eosinophils # (auto) 0.2 10 ^3/uL (0-0.8); Eosinophils % (auto) 3.4 % (0.0-7.0); Hematocrit 36.2 % (36.0-46.0); Hemoglobin 12.2 g/dL (12.2-16.2); Lymphocytes # (auto) 1.7 10 ^3/uL (0.4-5.4); Lymphocytes % (auto) 27.8 % (10.0-50.0); Mean Corpuscular Hemoglobin 30.2 pg (28.0-32.0); Mean Corpuscular Hgb Conc. 33.8 g/dL (32.0-36.0); Mean Corpuscular Volume 89.3 fL (80.0-100.0); Monocytes # (auto) 0.6 10 ^3/uL (0-1.3); Neutrophils # (auto) 3.5 10 ^3/uL (1.6-8.6); Neutrophils % (auto) 57.3 % (37.0-80.0); Nucleated Red Blood Cells % 0.1 %; Red Blood Cells 4.05 10^6/uL (4.0-5.20); Red Cell Distribution Width 15.5 % (11.8-14.3); White Blood Cell 6.1 10^3/uL (4.4-10.8)
[2023-01-30 10:51] LABS: Albumin 2.8 g/dL (3.4-5.0); BUN/Creatinine Ratio 14.9 (10.0-20.0); Calcium 9.1 mg/dL (8.5-10.1); Magnesium 2.2 mg/dL (1.6-2.6); Potassium 4.7 mmol/L (3.5-5.1)
[2023-01-30 10:54] LABS: Bilirubin, Total 0.4 mg/dL (0.2-1.0); Total Protein 6.8 g/dL (6.4-8.2)
[2023-01-30 11:00] LABS: Thyroid Stimulating Hormone 15.4 uIU/mL (0.358-3.74)
== END | disposition home or self-care (01) ==
LOC: LAB 09:54
PROVIDERS: ATTEND Internal Medicine
DX: Z51.11 Encounter for antineoplastic chemotherapy (principal); C43.59 Malignant melanoma of other part of trunk; C78.01 Secondary malignant neoplasm of right lung; C78.02 Secondary malignant neoplasm of left lung; E55.9 Vitamin D deficiency, unspecified; E11.9 Type 2 diabetes mellitus without complications
CPT/HCPCS: 36415; 80053; 82306; 83615; 83735; 84436; 84443; 85025

== ENCOUNTER → 2023-02-28 | Outpatient (CLI) | payer OTHER, MEDICAID ==
[2023-02-28 12:23] LABS: Basophils # (auto) 0.1 10 ^3/uL (0-0.2); Basophils % (auto) 1.7 % (0.0-2.0); Eosinophils # (auto) 0.1 10 ^3/uL (0-0.8); Eosinophils % (auto) 2.2 % (0.0-7.0); Hematocrit 34.7 % (36.0-46.0); Hemoglobin 11.7 g/dL (12.2-16.2); Lymphocytes # (auto) 1.2 10 ^3/uL (0.4-5.4); Lymphocytes % (auto) 24.1 % (10.0-50.0); Mean Corpuscular Hemoglobin 31.1 pg (28.0-32.0); Mean Corpuscular Hgb Conc. 33.6 g/dL (32.0-36.0); Mean Corpuscular Volume 92.4 fL (80.0-100.0); Monocytes # (auto) 0.3 10 ^3/uL (0-1.3); Monocytes % (auto) 6.7 % (0.0-12.0); Neutrophils # (auto) 3.3 10 ^3/uL (1.6-8.6); Neutrophils % (auto) 65.3 % (37.0-80.0); Nucleated Red Blood Cells % 0.1 %; Red Blood Cells 3.75 10^6/uL (4.0-5.20); Red Cell Distribution Width 16.5 % (11.8-14.3); White Blood Cell 5.1 10^3/uL (4.4-10.8)
[2023-02-28 12:58] LABS: Calcium 9.5 mg/dL (8.5-10.1); Potassium 4.4 mmol/L (3.5-5.1)
[2023-02-28 13:01] LABS: BUN/Creatinine Ratio 19.6 (10.0-20.0); Bilirubin, Total 0.3 mg/dL (0.2-1.0); Total Protein 7.2 g/dL (6.4-8.2)
[2023-02-28 14:11] LABS: Thyroid Stimulating Hormone 37.1 uIU/mL (0.358-3.74)
[2023-02-28 15:17] LABS: % Iron Saturation 35.7 % (15-50)
== END | disposition home or self-care (01) ==
LOC: LAB 11:41
PROVIDERS: ATTEND Internal Medicine
DX: C43.59 Malignant melanoma of other part of trunk (principal); C78.01 Secondary malignant neoplasm of right lung; C78.02 Secondary malignant neoplasm of left lung; E55.9 Vitamin D deficiency, unspecified; Z51.11 Encounter for antineoplastic chemotherapy; Z88.0 Allergy status to penicillin; Z88.8 Allergy status to other drugs, medicaments and biological substances; Z79.899 Other long term (current) drug therapy
CPT/HCPCS: 36415; 80053; 82306; 82728; 83540; 83550; 83615; 83735; 84436; 84443; 85025

== ENCOUNTER → 2023-03-16 | Outpatient (CLI) | payer OTHER, MEDICAID ==
[2023-03-16 11:54] LABS: Basophils # (auto) 0.1 10 ^3/uL (0-0.2); Basophils % (auto) 1.3 % (0.0-2.0); Eosinophils # (auto) 0.1 10 ^3/uL (0-0.8); Eosinophils % (auto) 2.4 % (0.0-7.0); Hematocrit 32.7 % (36.0-46.0); Hemoglobin 10.9 g/dL (12.2-16.2); Lymphocytes # (auto) 1.1 10 ^3/uL (0.4-5.4); Lymphocytes % (auto) 28.2 % (10.0-50.0); Mean Corpuscular Hemoglobin 31.3 pg (28.0-32.0); Mean Corpuscular Hgb Conc. 33.3 g/dL (32.0-36.0); Mean Corpuscular Volume 94.1 fL (80.0-100.0); Monocytes # (auto) 0.3 10 ^3/uL (0-1.3); Monocytes % (auto) 8.2 % (0.0-12.0); Neutrophils # (auto) 2.4 10 ^3/uL (1.6-8.6); Neutrophils % (auto) 59.9 % (37.0-80.0); Nucleated Red Blood Cells % 0.1 %; Red Blood Cells 3.48 10^6/uL (4.0-5.20); Red Cell Distribution Width 16.9 % (11.8-14.3); White Blood Cell 4.1 10^3/uL (4.4-10.8)
[2023-03-16 12:50] LABS: % Iron Saturation 25.6 % (15-50)
[2023-03-16 12:51] LABS: Potassium 4.2 mmol/L (3.5-5.1)
[2023-03-16 12:58] LABS: BUN/Creatinine Ratio 18.6 (10.0-20.0)
[2023-03-16 12:59] LABS: Albumin 2.9 g/dL (3.4-5.0); Bilirubin, Total 0.3 mg/dL (0.2-1.0); Calcium 9.2 mg/dL (8.5-10.1); Total Protein 7.1 g/dL (6.4-8.2)
== END | disposition home or self-care (01) ==
LOC: LAB 11:39
PROVIDERS: ATTEND Internal Medicine
DX: Z51.11 Encounter for antineoplastic chemotherapy (principal); C43.59 Malignant melanoma of other part of trunk; C78.01 Secondary malignant neoplasm of right lung; C78.02 Secondary malignant neoplasm of left lung; Z88.0 Allergy status to penicillin; Z88.8 Allergy status to other drugs, medicaments and biological substances; Z79.899 Other long term (current) drug therapy
CPT/HCPCS: 36415; 80053; 82306; 82728; 83540; 83550; 83615; 83735; 85025

== ENCOUNTER → 2023-03-22 | Outpatient (CLI) | payer OTHER, MEDICAID ==
[2023-03-22 11:50] LABS: Basophils # (auto) 0.1 10 ^3/uL (0-0.2); Basophils % (auto) 1.7 % (0.0-2.0); Eosinophils # (auto) 0.1 10 ^3/uL (0-0.8); Eosinophils % (auto) 2.7 % (0.0-7.0); Hematocrit 34.8 % (36.0-46.0); Hemoglobin 11.4 g/dL (12.2-16.2); Lymphocytes # (auto) 1.1 10 ^3/uL (0.4-5.4); Lymphocytes % (auto) 26.9 % (10.0-50.0); Mean Corpuscular Hgb Conc. 32.7 g/dL (32.0-36.0); Mean Corpuscular Volume 94.8 fL (80.0-100.0); Monocytes # (auto) 0.3 10 ^3/uL (0-1.3); Monocytes % (auto) 7.8 % (0.0-12.0); Neutrophils # (auto) 2.4 10 ^3/uL (1.6-8.6); Neutrophils % (auto) 60.9 % (37.0-80.0); Red Blood Cells 3.67 10^6/uL (4.0-5.20); Red Cell Distribution Width 16.8 % (11.8-14.3)
[2023-03-22 12:43] LABS: Potassium 4.3 mmol/L (3.5-5.1)
[2023-03-22 12:48] LABS: BUN/Creatinine Ratio 17.5 (10.0-20.0); Bilirubin, Total 0.4 mg/dL (0.2-1.0); Total Protein 7.4 g/dL (6.4-8.2)
== END | disposition home or self-care (01) ==
LOC: LAB 11:35
PROVIDERS: ATTEND Internal Medicine
DX: Z51.11 Encounter for antineoplastic chemotherapy (principal); C43.59 Malignant melanoma of other part of trunk; C78.01 Secondary malignant neoplasm of right lung; C78.02 Secondary malignant neoplasm of left lung; Z79.899 Other long term (current) drug therapy
CPT/HCPCS: 36415; 80053; 82306; 82728; 83540; 83615; 83735; 85025

== ENCOUNTER → 2023-04-13 | Outpatient (CLI) | payer OTHER, MEDICAID ==
[2023-04-13 11:43] LABS: Basophils # (auto) 0.1 10 ^3/uL (0-0.2); Basophils % (auto) 2.1 % (0.0-2.0); Eosinophils # (auto) 0.1 10 ^3/uL (0-0.8); Eosinophils % (auto) 2.2 % (0.0-7.0); Hematocrit 33.4 % (36.0-46.0); Lymphocytes # (auto) 1.4 10 ^3/uL (0.4-5.4); Lymphocytes % (auto) 24.3 % (10.0-50.0); Mean Corpuscular Hemoglobin 31.6 pg (28.0-32.0); Mean Corpuscular Hgb Conc. 32.9 g/dL (32.0-36.0); Mean Corpuscular Volume 96.1 fL (80.0-100.0); Monocytes # (auto) 0.8 10 ^3/uL (0-1.3); Monocytes % (auto) 13.7 % (0.0-12.0); Neutrophils # (auto) 3.4 10 ^3/uL (1.6-8.6); Neutrophils % (auto) 57.7 % (37.0-80.0); Red Blood Cells 3.47 10^6/uL (4.0-5.20); Red Cell Distribution Width 16.9 % (11.8-14.3); White Blood Cell 5.9 10^3/uL (4.4-10.8)
[2023-04-13 12:15] LABS: BUN/Creatinine Ratio 18.7 (10.0-20.0); Calcium 8.6 mg/dL (8.5-10.1); Magnesium 1.8 mg/dL (1.6-2.6); Potassium 4.2 mmol/L (3.5-5.1)
[2023-04-13 12:18] LABS: Bilirubin, Total 0.2 mg/dL (0.2-1.0); Total Protein 7.7 g/dL (6.4-8.2)
== END | disposition home or self-care (01) ==
LOC: LAB 11:29
PROVIDERS: ATTEND Internal Medicine
DX: Z51.11 Encounter for antineoplastic chemotherapy (principal); C43.59 Malignant melanoma of other part of trunk; C78.01 Secondary malignant neoplasm of right lung; C78.02 Secondary malignant neoplasm of left lung; Z79.899 Other long term (current) drug therapy
CPT/HCPCS: 36415; 80053; 82306; 82728; 83540; 83615; 83735; 85025

== ENCOUNTER → 2023-04-26 | Outpatient (CLI) | payer OTHER, MEDICAID ==
[2023-04-26 16:19] LABS: Basophils # (auto) 0.1 10 ^3/uL (0-0.2); Basophils % (auto) 1.2 % (0.0-2.0); Eosinophils # (auto) 0 10 ^3/uL (0-0.8); Hematocrit 35.6 % (36.0-46.0); Hemoglobin 11.9 g/dL (12.2-16.2); Lymphocytes # (auto) 0.8 10 ^3/uL (0.4-5.4); Lymphocytes % (auto) 18.3 % (10.0-50.0); Mean Corpuscular Hemoglobin 32.2 pg (28.0-32.0); Mean Corpuscular Hgb Conc. 33.5 g/dL (32.0-36.0); Mean Corpuscular Volume 96.1 fL (80.0-100.0); Monocytes # (auto) 0.5 10 ^3/uL (0-1.3); Monocytes % (auto) 10.9 % (0.0-12.0); Neutrophils # (auto) 3.1 10 ^3/uL (1.6-8.6); Neutrophils % (auto) 68.6 % (37.0-80.0); Nucleated Red Blood Cells % 0.2 %; Red Blood Cells 3.71 10^6/uL (4.0-5.20); White Blood Cell 4.5 10^3/uL (4.4-10.8)
[2023-04-26 17:09] LABS: Albumin 3.5 g/dL (3.4-5.0); Calcium 8.6 mg/dL (8.5-10.1); Magnesium 2.1 mg/dL (1.6-2.6); Potassium 4.2 mmol/L (3.5-5.1)
[2023-04-26 17:13] LABS: BUN/Creatinine Ratio 17.1 (10.0-20.0); Bilirubin, Total 0.3 mg/dL (0.2-1.0); Total Protein 8.4 g/dL (6.4-8.2)
[2023-04-26 17:20] LABS: Thyroid Stimulating Hormone 19.6 uIU/mL (0.358-3.74)
== END | disposition home or self-care (01) ==
LOC: LAB 15:58
PROVIDERS: ATTEND Internal Medicine
DX: Z51.11 Encounter for antineoplastic chemotherapy (principal); C43.59 Malignant melanoma of other part of trunk; C78.01 Secondary malignant neoplasm of right lung; C78.02 Secondary malignant neoplasm of left lung; Z79.899 Other long term (current) drug therapy
CPT/HCPCS: 36415; 80053; 82306; 82728; 83540; 83615; 83735; 84436; 84443; 85025

== ENCOUNTER → 2023-05-11 | Outpatient (CLI) | payer OTHER, MEDICAID ==
[2023-05-11 12:26] LABS: Basophils # (auto) 0 10 ^3/uL (0-0.2); Basophils % (auto) 0.7 % (0.0-2.0); Eosinophils # (auto) 0 10 ^3/uL (0-0.8); Eosinophils % (auto) 0.3 % (0.0-7.0); Hematocrit 39.8 % (36.0-46.0); Hemoglobin 13.7 g/dL (12.2-16.2); Lymphocytes # (auto) 1.1 10 ^3/uL (0.4-5.4); Lymphocytes % (auto) 16.9 % (10.0-50.0); Mean Corpuscular Hgb Conc. 34.5 g/dL (32.0-36.0); Mean Corpuscular Volume 92.7 fL (80.0-100.0); Monocytes # (auto) 0.6 10 ^3/uL (0-1.3); Monocytes % (auto) 9.4 % (0.0-12.0); Neutrophils # (auto) 4.8 10 ^3/uL (1.6-8.6); Neutrophils % (auto) 72.7 % (37.0-80.0); Nucleated Red Blood Cells % 0.1 %; Red Cell Distribution Width 14.5 % (11.8-14.3); White Blood Cell 6.6 10^3/uL (4.4-10.8)
[2023-05-11 12:54] LABS: Calcium 9.6 mg/dL (8.5-10.1); Magnesium 1.8 mg/dL (1.6-2.6); Potassium 3.5 mmol/L (3.5-5.1)
[2023-05-11 12:58] LABS: BUN/Creatinine Ratio 8.9 (10.0-20.0); Bilirubin, Total 0.7 mg/dL (0.2-1.0); Total Protein 9.6 g/dL (6.4-8.2)
== END | disposition home or self-care (01) ==
LOC: LAB 12:05
PROVIDERS: ATTEND Internal Medicine
DX: Z51.11 Encounter for antineoplastic chemotherapy (principal); C43.59 Malignant melanoma of other part of trunk; C78.01 Secondary malignant neoplasm of right lung; C78.02 Secondary malignant neoplasm of left lung; E55.9 Vitamin D deficiency, unspecified
CPT/HCPCS: 36415; 80053; 82306; 82728; 83540; 83615; 83735; 85025

== ENCOUNTER → 2023-07-20 | Outpatient (CLI) | payer OTHER, MEDICAID ==
[2023-07-20 12:17] LABS: Basophils # (auto) 0.1 10 ^3/uL (0-0.2); Basophils % (auto) 1.3 % (0.0-2.0); Eosinophils # (auto) 0.1 10 ^3/uL (0-0.8); Eosinophils % (auto) 2.9 % (0.0-7.0); Hematocrit 36.3 % (36.0-46.0); Hemoglobin 12.3 g/dL (12.2-16.2); Lymphocytes % (auto) 18.9 % (10.0-50.0); Mean Corpuscular Hemoglobin 31.4 pg (28.0-32.0); Mean Corpuscular Hgb Conc. 33.8 g/dL (32.0-36.0); Mean Corpuscular Volume 92.9 fL (80.0-100.0); Monocytes # (auto) 0.6 10 ^3/uL (0-1.3); Monocytes % (auto) 11.9 % (0.0-12.0); Neutrophils # (auto) 3.3 10 ^3/uL (1.6-8.6); Nucleated Red Blood Cells % 0.3 %; Red Blood Cells 3.91 10^6/uL (4.0-5.20); Red Cell Distribution Width 13.5 % (11.8-14.3); White Blood Cell 5.1 10^3/uL (4.4-10.8)
[2023-07-20 12:43] LABS: Alanine Aminotransferase 13 U/L (7-40); Alkaline Phosphatase 52 U/L (46-116); Anion Gap 5 (5-15); Aspartate Aminotransferase 11 U/L (13-40); BUN/Creatinine Ratio 13.4 (10.0-20.0); Blood Urea Nitrogen 13 mg/dL (9-23); Calcium 9.4 mg/dL (8.7-10.4); Carbon Dioxide 27 mmol/L (20-30); Chloride 101 mmol/L (98-107); Glucose 96 mg/dL (74-106); Magnesium 1.7 mg/dL (1.6-2.6); Potassium 4.3 mmol/L (3.5-5.1); Sodium 133 mmol/L (136-145)
[2023-07-20 12:46] LABS: Thyroid Stimulating Hormone 11.99 uIU/mL (0.358-3.74)
[2023-07-20 14:31] LABS: Bilirubin, Total 0.5 mg/dL (0.2-1.0)
== END | disposition home or self-care (01) ==
LOC: LAB 11:18
PROVIDERS: ATTEND Internal Medicine
DX: Z51.11 Encounter for antineoplastic chemotherapy (principal); C78.01 Secondary malignant neoplasm of right lung; C78.02 Secondary malignant neoplasm of left lung; C43.59 Malignant melanoma of other part of trunk; Z79.899 Other long term (current) drug therapy
CPT/HCPCS: 36415; 80053; 82306; 83615; 83735; 84436; 84443; 85025

== ENCOUNTER → 2023-08-03 | Outpatient (CLI) | payer OTHER, MEDICAID ==
[2023-08-03 11:36] LABS: Basophils # (auto) 0.1 10 ^3/uL (0-0.2); Basophils % (auto) 1.9 % (0.0-2.0); Eosinophils # (auto) 0.6 10 ^3/uL (0-0.8); Eosinophils % (auto) 10.7 % (0.0-7.0); Hematocrit 37.4 % (36.0-46.0); Hemoglobin 12.5 g/dL (12.2-16.2); Lymphocytes % (auto) 16.9 % (10.0-50.0); Mean Corpuscular Hemoglobin 31.1 pg (28.0-32.0); Mean Corpuscular Hgb Conc. 33.5 g/dL (32.0-36.0); Mean Corpuscular Volume 92.8 fL (80.0-100.0); Monocytes # (auto) 0.7 10 ^3/uL (0-1.3); Neutrophils # (auto) 3.5 10 ^3/uL (1.6-8.6); Neutrophils % (auto) 58.5 % (37.0-80.0); Red Blood Cells 4.03 10^6/uL (4.0-5.20); Red Cell Distribution Width 14.2 % (11.8-14.3); White Blood Cell 5.9 10^3/uL (4.4-10.8)
[2023-08-03 12:48] LABS: Alanine Aminotransferase 12 U/L (7-40); Albumin 4.1 g/dL (3.2-4.8); Alkaline Phosphatase 57 U/L (46-116); Anion Gap 3 (5-15); Aspartate Aminotransferase 20 U/L (13-40); BUN/Creatinine Ratio 8.2 (10.0-20.0); Blood Urea Nitrogen 7 mg/dL (9-23); Calcium 9.4 mg/dL (8.7-10.4); Carbon Dioxide 27 mmol/L (20-30); Chloride 103 mmol/L (98-107); Glucose 84 mg/dL (74-106); Magnesium 1.9 mg/dL (1.6-2.6); Potassium 4.1 mmol/L (3.5-5.1); Sodium 133 mmol/L (136-145)
[2023-08-03 12:49] LABS: Bilirubin, Total 0.4 mg/dL (0.2-1.0); Total Protein 7.9 g/dL (5.7-8.2)
== END | disposition home or self-care (01) ==
LOC: LAB 11:17
PROVIDERS: ATTEND Internal Medicine
DX: Z51.11 Encounter for antineoplastic chemotherapy (principal); C78.01 Secondary malignant neoplasm of right lung; C78.02 Secondary malignant neoplasm of left lung; C43.59 Malignant melanoma of other part of trunk; Z79.899 Other long term (current) drug therapy
CPT/HCPCS: 36415; 80053; 82306; 82728; 83540; 83615; 83735; 85025

== ENCOUNTER → 2023-08-17 | Outpatient (CLI) | payer OTHER, MEDICAID ==
[2023-08-17 12:08] LABS: Basophils # (auto) 0.1 10 ^3/uL (0-0.2); Basophils % (auto) 1.9 % (0.0-2.0); Eosinophils # (auto) 0.4 10 ^3/uL (0-0.8); Eosinophils % (auto) 7.7 % (0.0-7.0); Hematocrit 38.9 % (36.0-46.0); Hemoglobin 12.7 g/dL (12.2-16.2); Lymphocytes % (auto) 20.1 % (10.0-50.0); Mean Corpuscular Hemoglobin 30.8 pg (28.0-32.0); Mean Corpuscular Hgb Conc. 32.7 g/dL (32.0-36.0); Mean Corpuscular Volume 93.9 fL (80.0-100.0); Monocytes # (auto) 0.6 10 ^3/uL (0-1.3); Monocytes % (auto) 10.8 % (0.0-12.0); Neutrophils # (auto) 3.1 10 ^3/uL (1.6-8.6); Neutrophils % (auto) 59.5 % (37.0-80.0); Red Blood Cells 4.14 10^6/uL (4.0-5.20); Red Cell Distribution Width 14.2 % (11.8-14.3); White Blood Cell 5.2 10^3/uL (4.4-10.8)
[2023-08-17 12:54] LABS: Alanine Aminotransferase 12 U/L (7-40); Albumin 4.2 g/dL (3.2-4.8); Alkaline Phosphatase 58 U/L (46-116); Anion Gap 4 (5-15); Aspartate Aminotransferase 12 U/L (13-40); BUN/Creatinine Ratio 11.6 (10.0-20.0); Blood Urea Nitrogen 11 mg/dL (9-23); Calcium 9.5 mg/dL (8.7-10.4); Carbon Dioxide 28 mmol/L (20-30); Chloride 100 mmol/L (98-107); Glucose 97 mg/dL (74-106); Magnesium 1.9 mg/dL (1.6-2.6); Potassium 4.5 mmol/L (3.5-5.1); Sodium 132 mmol/L (136-145)
[2023-08-17 12:55] LABS: Bilirubin, Total 0.4 mg/dL (0.2-1.0); Total Protein 7.8 g/dL (5.7-8.2)
== END | disposition home or self-care (01) ==
LOC: LAB 11:30
PROVIDERS: ATTEND Internal Medicine
DX: Z51.11 Encounter for antineoplastic chemotherapy (principal); C43.59 Malignant melanoma of other part of trunk; C78.01 Secondary malignant neoplasm of right lung; C78.02 Secondary malignant neoplasm of left lung; Z88.8 Allergy status to other drugs, medicaments and biological substances; Z88.0 Allergy status to penicillin; Z79.899 Other long term (current) drug therapy
CPT/HCPCS: 36415; 80053; 82306; 82728; 83540; 83615; 83735; 85025

== ENCOUNTER → 2023-09-11 | Outpatient (CLI) | payer OTHER, MEDICAID ==
[2023-09-11 11:45] LABS: Basophils # (auto) 0.1 10 ^3/uL (0-0.2); Basophils % (auto) 1.3 % (0.0-2.0); Eosinophils # (auto) 0.1 10 ^3/uL (0-0.8); Eosinophils % (auto) 1.4 % (0.0-7.0); Hematocrit 38.1 % (36.0-46.0); Hemoglobin 12.4 g/dL (12.2-16.2); Lymphocytes % (auto) 19.4 % (10.0-50.0); Mean Corpuscular Hemoglobin 30.3 pg (28.0-32.0); Mean Corpuscular Hgb Conc. 32.6 g/dL (32.0-36.0); Mean Corpuscular Volume 92.7 fL (80.0-100.0); Monocytes # (auto) 0.5 10 ^3/uL (0-1.3); Neutrophils # (auto) 3.5 10 ^3/uL (1.6-8.6); Neutrophils % (auto) 68.9 % (37.0-80.0); Nucleated Red Blood Cells % 0.1 %; Red Blood Cells 4.11 10^6/uL (4.0-5.20); White Blood Cell 5.1 10^3/uL (4.4-10.8)
[2023-09-11 12:21] LABS: Alanine Aminotransferase 11 U/L (7-40); Albumin 4.2 g/dL (3.2-4.8); Alkaline Phosphatase 53 U/L (46-116); Anion Gap 5 (5-15); Aspartate Aminotransferase 15 U/L (13-40); BUN/Creatinine Ratio 11.7 (10.0-20.0); Blood Urea Nitrogen 11 mg/dL (9-23); Calcium 9.6 mg/dL (8.7-10.4); Carbon Dioxide 26 mmol/L (20-30); Chloride 104 mmol/L (98-107); Glucose 98 mg/dL (74-106); Potassium 4.8 mmol/L (3.5-5.1); Sodium 135 mmol/L (136-145)
[2023-09-11 12:22] LABS: Bilirubin, Total 0.5 mg/dL (0.2-1.0); Total Protein 7.9 g/dL (5.7-8.2)
== END | disposition home or self-care (01) ==
LOC: LAB 11:21
PROVIDERS: ATTEND Internal Medicine
DX: Z51.11 Encounter for antineoplastic chemotherapy (principal); C43.59 Malignant melanoma of other part of trunk; C78.02 Secondary malignant neoplasm of left lung; C78.01 Secondary malignant neoplasm of right lung; E55.9 Vitamin D deficiency, unspecified; Z88.8 Allergy status to other drugs, medicaments and biological substances; Z88.0 Allergy status to penicillin
CPT/HCPCS: 36415; 80053; 82306; 82728; 83540; 83615; 83735; 85025

== ENCOUNTER → 2023-09-28 | Outpatient (CLI) | payer OTHER, MEDICAID ==
[2023-09-28 11:50] LABS: Basophils # (auto) 0.1 10 ^3/uL (0-0.2); Basophils % (auto) 1.1 % (0.0-2.0); Eosinophils # (auto) 0.1 10 ^3/uL (0-0.8); Eosinophils % (auto) 1.6 % (0.0-7.0); Hematocrit 38.1 % (36.0-46.0); Hemoglobin 12.6 g/dL (12.2-16.2); Lymphocytes % (auto) 18.1 % (10.0-50.0); Mean Corpuscular Hemoglobin 30.4 pg (28.0-32.0); Mean Corpuscular Hgb Conc. 33.1 g/dL (32.0-36.0); Mean Corpuscular Volume 91.9 fL (80.0-100.0); Monocytes # (auto) 0.5 10 ^3/uL (0-1.3); Monocytes % (auto) 8.3 % (0.0-12.0); Neutrophils # (auto) 3.8 10 ^3/uL (1.6-8.6); Neutrophils % (auto) 70.9 % (37.0-80.0); Nucleated Red Blood Cells % 0.7 %; Red Blood Cells 4.15 10^6/uL (4.0-5.20); White Blood Cell 5.4 10^3/uL (4.4-10.8)
[2023-09-28 12:36] LABS: Alanine Aminotransferase 14 U/L (7-40); Albumin 4.2 g/dL (3.2-4.8); Alkaline Phosphatase 57 U/L (46-116); Anion Gap 6 (5-15); Aspartate Aminotransferase 16 U/L (13-40); BUN/Creatinine Ratio 9.8 (10.0-20.0); Bilirubin, Total 0.4 mg/dL (0.2-1.0); Blood Urea Nitrogen 9 mg/dL (9-23); Calcium 9.5 mg/dL (8.7-10.4); Carbon Dioxide 25 mmol/L (20-30); Chloride 104 mmol/L (98-107); Glucose 102 mg/dL (74-106); Magnesium 1.9 mg/dL (1.6-2.6); Potassium 4.7 mmol/L (3.5-5.1); Sodium 135 mmol/L (136-145); Total Protein 7.5 g/dL (5.7-8.2)
[2023-09-28 12:38] LABS: Ferritin 72.6 ng/mL (10-291)
[2023-09-28 12:39] LABS: Free T4 (Free Thyroxine) 0.94 ng/dL (0.89-1.76)
[2023-09-28 12:44] LABS: Thyroid Stimulating Hormone 5.91 uIU/mL (0.358-3.74)
== END | disposition home or self-care (01) ==
LOC: LAB 11:29
PROVIDERS: ATTEND Internal Medicine
DX: Z51.11 Encounter for antineoplastic chemotherapy (principal); C78.02 Secondary malignant neoplasm of left lung; C78.01 Secondary malignant neoplasm of right lung; E55.9 Vitamin D deficiency, unspecified; C43.59 Malignant melanoma of other part of trunk; Z79.899 Other long term (current) drug therapy
CPT/HCPCS: 36415; 80053; 82306; 82728; 83540; 83615; 83735; 84439; 84443; 85025

== ENCOUNTER → 2023-10-12 | Outpatient (CLI) | payer OTHER, MEDICAID ==
[2023-10-12 10:04] LABS: Basophils # (auto) 0.1 10 ^3/uL (0-0.2); Basophils % (auto) 1.2 % (0.0-2.0); Eosinophils # (auto) 0.1 10 ^3/uL (0-0.8); Eosinophils % (auto) 2.1 % (0.0-7.0); Hematocrit 38.8 % (36.0-46.0); Hemoglobin 12.8 g/dL (12.2-16.2); Lymphocytes # (auto) 0.9 10 ^3/uL (0.4-5.4); Mean Corpuscular Hemoglobin 30.2 pg (28.0-32.0); Mean Corpuscular Hgb Conc. 32.9 g/dL (32.0-36.0); Mean Corpuscular Volume 91.8 fL (80.0-100.0); Monocytes # (auto) 0.6 10 ^3/uL (0-1.3); Monocytes % (auto) 9.9 % (0.0-12.0); Neutrophils # (auto) 4.4 10 ^3/uL (1.6-8.6); Neutrophils % (auto) 71.8 % (37.0-80.0); Red Blood Cells 4.22 10^6/uL (4.0-5.20); Red Cell Distribution Width 14.4 % (11.8-14.3); White Blood Cell 6.1 10^3/uL (4.4-10.8)
[2023-10-12 10:34] LABS: Alanine Aminotransferase 10 U/L (7-40); Albumin 4.2 g/dL (3.2-4.8); Alkaline Phosphatase 52 U/L (46-116); Anion Gap 6 (5-15); Aspartate Aminotransferase 15 U/L (13-40); BUN/Creatinine Ratio 10.9 (10.0-20.0); Blood Urea Nitrogen 10 mg/dL (9-23); Calcium 9.7 mg/dL (8.5-10.1); Carbon Dioxide 27 mmol/L (20-30); Chloride 104 mmol/L (98-107); Glucose 97 mg/dL (74-106); Potassium 4.8 mmol/L (3.5-5.1); Sodium 137 mmol/L (136-145)
[2023-10-12 10:35] LABS: Bilirubin, Total 0.3 mg/dL (0.2-1.0); Total Protein 7.4 g/dL (5.7-8.2)
[2023-10-12 10:38] LABS: Thyroid Stimulating Hormone 6.94 uIU/mL (0.55-4.78)
[2023-10-12 10:45] LABS: Partial Thromboplastin Time 27.1 SEC (24.5-34.5); Prothrombin Time 10.5 sec (9.3-11.8)
== END | disposition home or self-care (01) ==
LOC: LAB 09:32
PROVIDERS: ATTEND Internal Medicine
DX: Z51.11 Encounter for antineoplastic chemotherapy (principal); C78.01 Secondary malignant neoplasm of right lung; C78.02 Secondary malignant neoplasm of left lung; I48.91 Unspecified atrial fibrillation; C43.59 Malignant melanoma of other part of trunk; Z88.0 Allergy status to penicillin; Z88.8 Allergy status to other drugs, medicaments and biological substances; Z79.899 Other long term (current) drug therapy
CPT/HCPCS: 36415; 80053; 83615; 84436; 84443; 85025; 85610; 85730

== ENCOUNTER → 2023-10-26 | Outpatient (CLI) | payer OTHER, MEDICAID ==
[2023-10-26 11:30] LABS: Basophils # (auto) 0.1 10 ^3/uL (0-0.2); Basophils % (auto) 1.2 % (0.0-2.0); Eosinophils # (auto) 0.1 10 ^3/uL (0-0.8); Eosinophils % (auto) 1.5 % (0.0-7.0); Hematocrit 38.4 % (36.0-46.0); Hemoglobin 12.5 g/dL (12.2-16.2); Lymphocytes % (auto) 20.5 % (10.0-50.0); Mean Corpuscular Hgb Conc. 32.5 g/dL (32.0-36.0); Mean Corpuscular Volume 92.3 fL (80.0-100.0); Monocytes # (auto) 0.5 10 ^3/uL (0-1.3); Monocytes % (auto) 9.4 % (0.0-12.0); Neutrophils # (auto) 3.3 10 ^3/uL (1.6-8.6); Neutrophils % (auto) 67.4 % (37.0-80.0); Nucleated Red Blood Cells % 0.1 %; Red Blood Cells 4.16 10^6/uL (4.0-5.20); Red Cell Distribution Width 14.4 % (11.8-14.3); White Blood Cell 4.9 10^3/uL (4.4-10.8)
[2023-10-26 11:56] LABS: Alanine Aminotransferase 13 U/L (7-40); Albumin 4.2 g/dL (3.2-4.8); Alkaline Phosphatase 51 U/L (46-116); Anion Gap 8 (5-15); Aspartate Aminotransferase 17 U/L (13-40); BUN/Creatinine Ratio 7.1 (10.0-20.0); Blood Urea Nitrogen 7 mg/dL (9-23); Calcium 9.7 mg/dL (8.5-10.1); Carbon Dioxide 25 mmol/L (20-30); Chloride 103 mmol/L (98-107); Glucose 111 mg/dL (74-106); Sodium 136 mmol/L (136-145)
[2023-10-26 11:57] LABS: Bilirubin, Total 0.5 mg/dL (0.2-1.0); Total Protein 7.4 g/dL (5.7-8.2)
[2023-10-26 12:01] LABS: Thyroid Stimulating Hormone 6.3 uIU/mL (0.55-4.78)
== END | disposition home or self-care (01) ==
LOC: LAB 11:16
PROVIDERS: ATTEND Internal Medicine
DX: Z51.11 Encounter for antineoplastic chemotherapy (principal); C78.01 Secondary malignant neoplasm of right lung; C78.02 Secondary malignant neoplasm of left lung; C43.59 Malignant melanoma of other part of trunk; Z79.899 Other long term (current) drug therapy
CPT/HCPCS: 36415; 80053; 83615; 84439; 84443; 85025

== ENCOUNTER → 2023-11-07 | Outpatient (CLI) | payer OTHER, MEDICAID ==
[2023-11-07 12:17] LABS: Basophils # (auto) 0.1 10 ^3/uL (0-0.2); Basophils % (auto) 1.2 % (0.0-2.0); Eosinophils # (auto) 0.1 10 ^3/uL (0-0.8); Hematocrit 37.6 % (36.0-46.0); Hemoglobin 12.4 g/dL (12.2-16.2); Lymphocytes % (auto) 20.2 % (10.0-50.0); Mean Corpuscular Hemoglobin 30.2 pg (28.0-32.0); Mean Corpuscular Hgb Conc. 33.1 g/dL (32.0-36.0); Mean Corpuscular Volume 91.5 fL (80.0-100.0); Monocytes # (auto) 0.5 10 ^3/uL (0-1.3); Monocytes % (auto) 10.1 % (0.0-12.0); Neutrophils # (auto) 3.2 10 ^3/uL (1.6-8.6); Neutrophils % (auto) 66.5 % (37.0-80.0); Nucleated Red Blood Cells % 0.1 %; Red Blood Cells 4.11 10^6/uL (4.0-5.20); Red Cell Distribution Width 14.8 % (11.8-14.3); White Blood Cell 4.8 10^3/uL (4.4-10.8)
[2023-11-07 13:04] LABS: Albumin 4.1 g/dL (3.2-4.8); Alkaline Phosphatase 52 U/L (46-116); Anion Gap 7 (5-15); Aspartate Aminotransferase 16 U/L (13-40); BUN/Creatinine Ratio 9.8 (10.0-20.0); Blood Urea Nitrogen 10 mg/dL (9-23); Calcium 9.7 mg/dL (8.5-10.1); Carbon Dioxide 24 mmol/L (20-30); Chloride 106 mmol/L (98-107); Glucose 108 mg/dL (74-106); Potassium 4.2 mmol/L (3.5-5.1); Sodium 137 mmol/L (136-145); Thyroid Stimulating Hormone 3.18 uIU/mL (0.55-4.78)
[2023-11-07 13:05] LABS: Bilirubin, Total 0.4 mg/dL (0.2-1.0); Total Protein 7.3 g/dL (5.7-8.2)
[2023-11-07 13:11] LABS: Alanine Aminotransferase < 9 U/L (7-40)
== END | disposition home or self-care (01) ==
LOC: LAB 11:46
PROVIDERS: ATTEND Internal Medicine
DX: Z51.11 Encounter for antineoplastic chemotherapy (principal); C43.59 Malignant melanoma of other part of trunk; C78.01 Secondary malignant neoplasm of right lung; C78.02 Secondary malignant neoplasm of left lung; I48.91 Unspecified atrial fibrillation; Z88.8 Allergy status to other drugs, medicaments and biological substances
CPT/HCPCS: 36415; 80053; 83615; 84439; 84443; 85025

== ENCOUNTER → 2023-11-23 | Outpatient (CLI) | payer OTHER, MEDICAID ==
[2023-11-23 11:55] LABS: Basophils # (auto) 0.1 10 ^3/uL (0-0.2); Basophils % (auto) 1.1 % (0.0-2.0); Eosinophils # (auto) 0.1 10 ^3/uL (0-0.8); Eosinophils % (auto) 1.9 % (0.0-7.0); Hematocrit 38.6 % (36.0-46.0); Hemoglobin 13.1 g/dL (12.2-16.2); Lymphocytes # (auto) 0.9 10 ^3/uL (0.4-5.4); Mean Corpuscular Hemoglobin 30.7 pg (28.0-32.0); Mean Corpuscular Hgb Conc. 33.8 g/dL (32.0-36.0); Mean Corpuscular Volume 90.8 fL (80.0-100.0); Monocytes # (auto) 0.5 10 ^3/uL (0-1.3); Monocytes % (auto) 9.9 % (0.0-12.0); Neutrophils # (auto) 3.9 10 ^3/uL (1.6-8.6); Neutrophils % (auto) 70.1 % (37.0-80.0); Red Blood Cells 4.25 10^6/uL (4.0-5.20); Red Cell Distribution Width 14.4 % (11.8-14.3); White Blood Cell 5.5 10^3/uL (4.4-10.8)
[2023-11-23 12:30] LABS: Alanine Aminotransferase 13 U/L (7-40); Albumin 4.1 g/dL (3.2-4.8); Alkaline Phosphatase 54 U/L (46-116); Anion Gap 8 (5-15); BUN/Creatinine Ratio 10.9 (10.0-20.0); Blood Urea Nitrogen 10 mg/dL (9-23); Calcium 9.9 mg/dL (8.5-10.1); Carbon Dioxide 22 mmol/L (20-30); Chloride 104 mmol/L (98-107); Glucose 119 mg/dL (74-106); Potassium 4.3 mmol/L (3.5-5.1); Sodium 134 mmol/L (136-145)
[2023-11-23 12:31] LABS: Aspartate Aminotransferase 10 U/L (13-40); Bilirubin, Total 0.5 mg/dL (0.2-1.0); Total Protein 7.5 g/dL (5.7-8.2)
[2023-11-23 12:51] LABS: Thyroid Stimulating Hormone 3.52 uIU/mL (0.358-3.74)
== END | disposition home or self-care (01) ==
LOC: LAB 11:38
PROVIDERS: ATTEND Internal Medicine
DX: Z51.11 Encounter for antineoplastic chemotherapy (principal); C78.01 Secondary malignant neoplasm of right lung; C78.02 Secondary malignant neoplasm of left lung; C43.59 Malignant melanoma of other part of trunk; Z88.0 Allergy status to penicillin; Z88.8 Allergy status to other drugs, medicaments and biological substances; Z79.899 Other long term (current) drug therapy
CPT/HCPCS: 36415; 80053; 83615; 84439; 84443; 85025

== ENCOUNTER → 2023-12-07 | Outpatient (CLI) | payer OTHER, MEDICAID ==
[2023-12-07 11:49] LABS: Basophils # (auto) 0.1 10 ^3/uL (0-0.2); Basophils % (auto) 1.5 % (0.0-2.0); Eosinophils # (auto) 0.1 10 ^3/uL (0-0.8); Hematocrit 39.8 % (36.0-46.0); Hemoglobin 13.1 g/dL (12.2-16.2); Lymphocytes # (auto) 1.1 10 ^3/uL (0.4-5.4); Lymphocytes % (auto) 18.7 % (10.0-50.0); Mean Corpuscular Hemoglobin 29.7 pg (28.0-32.0); Mean Corpuscular Hgb Conc. 32.9 g/dL (32.0-36.0); Mean Corpuscular Volume 90.4 fL (80.0-100.0); Monocytes # (auto) 0.5 10 ^3/uL (0-1.3); Neutrophils % (auto) 68.8 % (37.0-80.0); Nucleated Red Blood Cells % 0.2 %; Red Cell Distribution Width 14.8 % (11.8-14.3); White Blood Cell 5.8 10^3/uL (4.4-10.8)
[2023-12-07 12:17] LABS: Alanine Aminotransferase 10 U/L (7-40); Alkaline Phosphatase 52 U/L (46-116); Anion Gap 6 (5-15); BUN/Creatinine Ratio 11.1 (10.0-20.0); Blood Urea Nitrogen 11 mg/dL (9-23); Calcium 10.2 mg/dL (8.5-10.1); Carbon Dioxide 26 mmol/L (20-30); Chloride 103 mmol/L (98-107); Glucose 103 mg/dL (74-106); Potassium 4.7 mmol/L (3.5-5.1); Sodium 135 mmol/L (136-145)
[2023-12-07 12:18] LABS: Albumin 4.3 g/dL (3.2-4.8); Aspartate Aminotransferase 20 U/L (13-40); Bilirubin, Total 0.6 mg/dL (0.2-1.0); Total Protein 7.5 g/dL (5.7-8.2)
[2023-12-07 12:19] LABS: Thyroid Stimulating Hormone 2.7 uIU/mL (0.55-4.78)
== END | disposition home or self-care (01) ==
LOC: LAB 11:34
PROVIDERS: ATTEND Internal Medicine
DX: Z51.11 Encounter for antineoplastic chemotherapy (principal); C78.02 Secondary malignant neoplasm of left lung; C78.01 Secondary malignant neoplasm of right lung; I48.91 Unspecified atrial fibrillation
CPT/HCPCS: 36415; 80053; 83615; 84439; 84443; 85025

== ENCOUNTER → 2023-12-21 | Outpatient (CLI) | payer OTHER, MEDICAID ==
[2023-12-21 11:40] LABS: Basophils # (auto) 0.1 10 ^3/uL (0-0.2); Basophils % (auto) 1.2 % (0.0-2.0); Eosinophils # (auto) 0.1 10 ^3/uL (0-0.8); Eosinophils % (auto) 1.3 % (0.0-7.0); Hematocrit 38.4 % (36.0-46.0); Hemoglobin 12.5 g/dL (12.2-16.2); Lymphocytes % (auto) 17.1 % (10.0-50.0); Mean Corpuscular Hemoglobin 29.5 pg (28.0-32.0); Mean Corpuscular Hgb Conc. 32.6 g/dL (32.0-36.0); Mean Corpuscular Volume 90.5 fL (80.0-100.0); Monocytes # (auto) 0.5 10 ^3/uL (0-1.3); Monocytes % (auto) 8.4 % (0.0-12.0); Neutrophils # (auto) 4.4 10 ^3/uL (1.6-8.6); Red Blood Cells 4.25 10^6/uL (4.0-5.20); Red Cell Distribution Width 14.6 % (11.8-14.3); White Blood Cell 6.1 10^3/uL (4.4-10.8)
[2023-12-21 12:39] LABS: Alkaline Phosphatase 53 U/L (46-116); Anion Gap 11 (5-15); BUN/Creatinine Ratio 11.9 (10.0-20.0); Blood Urea Nitrogen 10 mg/dL (9-23); Calcium 9.7 mg/dL (8.5-10.1); Carbon Dioxide 21 mmol/L (20-30); Chloride 103 mmol/L (98-107); Glucose 115 mg/dL (74-106); Potassium 4.2 mmol/L (3.5-5.1); Sodium 135 mmol/L (136-145)
[2023-12-21 12:40] LABS: Albumin 4.3 g/dL (3.2-4.8); Aspartate Aminotransferase 15 U/L (13-40); Bilirubin, Total 0.5 mg/dL (0.2-1.0); Total Protein 7.7 g/dL (5.7-8.2)
[2023-12-21 12:41] LABS: Thyroid Stimulating Hormone 3.84 uIU/mL (0.55-4.78)
[2023-12-21 12:42] LABS: Alanine Aminotransferase < 9 U/L (7-40)
[2023-12-22 08:06] LABS: Thyroxine (T4) 7.7 ug/dL (4.5-12.0)
== END | disposition home or self-care (01) ==
LOC: LAB 11:20
PROVIDERS: ATTEND Internal Medicine
DX: Z51.11 Encounter for antineoplastic chemotherapy (principal); C78.01 Secondary malignant neoplasm of right lung; C78.02 Secondary malignant neoplasm of left lung; C43.59 Malignant melanoma of other part of trunk; Z88.0 Allergy status to penicillin; Z88.8 Allergy status to other drugs, medicaments and biological substances; Z79.899 Other long term (current) drug therapy
CPT/HCPCS: 36415; 80053; 82306; 83615; 84436; 84443; 85025

== ENCOUNTER → 2024-01-15 | Outpatient (CLI) | payer OTHER, MEDICAID ==
[2024-01-15 11:35] LABS: Basophils # (auto) 0.1 10 ^3/uL (0-0.2); Basophils % (auto) 1.5 % (0.0-2.0); Eosinophils # (auto) 0.1 10 ^3/uL (0-0.8); Eosinophils % (auto) 1.2 % (0.0-7.0); Hematocrit 39.3 % (36.0-46.0); Lymphocytes # (auto) 1.3 10 ^3/uL (0.4-5.4); Lymphocytes % (auto) 26.5 % (10.0-50.0); Mean Corpuscular Hemoglobin 29.7 pg (28.0-32.0); Mean Corpuscular Volume 90.1 fL (80.0-100.0); Monocytes # (auto) 0.6 10 ^3/uL (0-1.3); Monocytes % (auto) 13.3 % (0.0-12.0); Neutrophils # (auto) 2.7 10 ^3/uL (1.6-8.6); Neutrophils % (auto) 57.5 % (37.0-80.0); Nucleated Red Blood Cells % 0.1 %; Red Blood Cells 4.36 10^6/uL (4.0-5.20); Red Cell Distribution Width 14.8 % (11.8-14.3); White Blood Cell 4.7 10^3/uL (4.4-10.8)
[2024-01-15 12:25] LABS: Alanine Aminotransferase 13 U/L (7-40); Albumin 3.7 g/dL (3.2-4.8); Alkaline Phosphatase 81 U/L (46-116); Anion Gap 8 (5-15); Aspartate Aminotransferase 21 U/L (13-40); BUN/Creatinine Ratio 16.5 (10.0-20.0); Bilirubin, Total 0.4 mg/dL (0.2-1.0); Blood Urea Nitrogen 15 mg/dL (9-23); Calcium 9.3 mg/dL (8.7-10.4); Carbon Dioxide 25 mmol/L (20-30); Chloride 102 mmol/L (98-107); Glucose 114 mg/dL (74-106); Potassium 3.9 mmol/L (3.5-5.1); Sodium 135 mmol/L (136-145); Total Protein 7.2 g/dL (5.7-8.2)
[2024-01-17 08:42] LABS: Hepatitis B Surface Antibody Negative (Negative)
[2024-01-17 08:54] LABS: Hepatitis B Surface Antigen Negative (Negative)
== END | disposition home or self-care (01) ==
LOC: LAB 11:14
PROVIDERS: ATTEND Internal Medicine
DX: C43.59 Malignant melanoma of other part of trunk (principal); C78.02 Secondary malignant neoplasm of left lung; C78.01 Secondary malignant neoplasm of right lung; Z88.0 Allergy status to penicillin; Z88.8 Allergy status to other drugs, medicaments and biological substances; Z51.11 Encounter for antineoplastic chemotherapy
CPT/HCPCS: 36415; 80053; 83615; 85025; 86706; 87340

== ENCOUNTER 2024-03-03 10:30 | Emergency (ER) | payer OTHER, MEDICAID ==
[~2024-03-03] VITALS: Ht 170.2 cm; Wt 70.0 kg
[~2024-03-03 10:30] MED LIST changes: +POTA-36 PO; -POTA10TA51 PO
[2024-03-03] MEDS ORDERED: MELO7.5T7 PO (13:53)
[2024-03-03 13:59] VITALS: BP 109/82; PULSE 93; RESP 18; TEMP 97.6; O2SAT 94
[2024-03-03] MEDS: HYDROcodone-ACET 5/325MG TAB PO ONE (14:22)
== END 2024-03-03 15:19 | disposition home or self-care (01) ==
LOC: EDBD 10:30 → ER 10:30
DX: S62.002A Unspecified fracture of navicular [scaphoid] bone of left wrist, initial encounter for closed fracture (principal); S22.089A Unspecified fracture of T11-T12 vertebra, initial encounter for closed fracture; J44.9 Chronic obstructive pulmonary disease, unspecified; Z88.0 Allergy status to penicillin; Z88.1 Allergy status to other antibiotic agents; Z85.9 Personal history of malignant neoplasm, unspecified; W17.89XA Other fall from one level to another, initial encounter; Y93.89 Activity, other specified; Y92.008 Other place in unspecified non-institutional (private) residence as the place of occurrence of the external cause; Y99.8 Other external cause status
CPT/HCPCS: 29125; 72100; 73110

== ENCOUNTER 2024-03-07 08:41 | Inpatient (IN) | payer OTHER, MEDICAID ==
[~2024-03-07] VITALS: Ht 170.2 cm; Wt 79.9 kg
[~2024-03-07 08:41] MED LIST changes: +MELO7.5T7 PO
[2024-03-07 09:15] VITALS: PULSE 82; RESP 22; O2SAT 95
[2024-03-07] MEDS: SODIUM CHLORIDE 0.9% 1,000 ML IV ONE (09:28)
[2024-03-07 09:40] LABS: Basophils # (auto) 0 10 ^3/uL (0-0.2); Basophils % (auto) 0.3 % (0.0-2.0); Eosinophils # (auto) 0 10 ^3/uL (0-0.8); Eosinophils % (auto) 0.4 % (0.0-7.0); Hematocrit 32.9 % (36.0-46.0); Lymphocytes # (auto) 0.6 10 ^3/uL (0.4-5.4); Lymphocytes % (auto) 7.3 % (10.0-50.0); Mean Corpuscular Hemoglobin 28.8 pg (28.0-32.0); Mean Corpuscular Hgb Conc. 33.4 g/dL (32.0-36.0); Mean Corpuscular Volume 86.2 fL (80.0-100.0); Monocytes # (auto) 1.3 10 ^3/uL (0-1.3); Monocytes % (auto) 15.2 % (0.0-12.0); Neutrophils # (auto) 6.4 10 ^3/uL (1.6-8.6); Neutrophils % (auto) 76.8 % (37.0-80.0); Nucleated Red Blood Cells % 0.1 %; Red Blood Cells 3.81 10^6/uL (4.0-5.20); Red Cell Distribution Width 14.4 % (11.8-14.3); White Blood Cell 8.3 10^3/uL (4.4-10.8)
[2024-03-07 09:45] LABS: Chloride 87 mmol/L (98-107); Potassium 3.4 mmol/L (3.5-5.1)
[2024-03-07 09:46] LABS: Anion Gap 7 (5-15); Carbon Dioxide 23 mmol/L (20-30)
[2024-03-07 09:51] LABS: Blood Urea Nitrogen 12 mg/dL (9-23); Glucose 133 mg/dL (74-106)
[2024-03-07 10:18] LABS: Sodium 117 mmol/L (136-145)
[2024-03-07] MEDS ORDERED: ONDANSETRON HCL 4 MG/2 ML VIAL IV PRN (12:00)
[2024-03-07] MEDS ORDERED: SODIUM CHLORIDE 0.9% 1,000 ML IV SCH ×2 (12:00→16:00)
[2024-03-07 12:24] LABS: Uric Acid 2.5 mg/dL (3.1-7.8)
[2024-03-07 12:26] LABS: Magnesium 1.9 mg/dL (1.6-2.6)
[2024-03-07] MEDS: ENOXAPARIN SOD 40 MG/0.4 ML SYRINGE SC SCH (12:28)
[2024-03-07 14:21] LABS: Urine Bacteria None Seen /hpf (None Seen)
[2024-03-07 14:46] LABS: Urine Amorphous Crystal FEW /hpf (None Seen); Urine Blood Negative /uL (Negative); Urine Clarity Turbid (Clear); Urine Color Yellow (Yellow); Urine Protein, UAD TRACE (Negative); Urine Specific Gravity 1.014 (1.001-1.035); Urine Urobilinogen Normal (Negative); Urine WBC 3 /hpf (0 - 5); Urine pH 6.5 (5.0-9.0)
[2024-03-07 15:03] LABS: Creatinine, Urine 89.13 mg/dL (30.0-125.0)
[2024-03-07] MEDS: MORPHINE SULFATE INJ 2 MG/ml SYRG IV PRN (17:19)
[2024-03-07] MEDS: MORPHINE SULFATE INJ 2 MG/ml SYRG IM ONE (17:23)
[2024-03-07] MEDS: SODIUM CHLORIDE 0.9% 1,000 ML IV SCH (17:23)
[2024-03-07] MEDS: UREA 15gm PO Powder PKG PO SCH (17:44)
[2024-03-07 19:25] VITALS: PULSE 76; RESP 18; O2SAT 95
[2024-03-07 22:56] VITALS: PULSE 81; RESP 16; O2SAT 94
[2024-03-07 23:00] VITALS: BP 126/77; PULSE 64; RESP 17; TEMP 97.5; O2SAT 90
[2024-03-07] MEDS ORDERED: TRAM50TA2 PO (23:01)
[2024-03-07] MEDS ORDERED: [UNRECOGNIZED DRUG - CODE] PO (23:01)
[2024-03-07] MEDS ORDERED: SERT-289 PO (23:02)
[2024-03-07] MEDS ORDERED: LEVO112T4 PO (23:02)
[2024-03-07] MEDS ORDERED: SERT-206 PO (23:05)
[2024-03-08] VITALS (7 sets, daily range): BP systolic 102–127; BP diastolic 67–84; PULSE 67–92; RESP 16–21; TEMP 97.2–98.9; O2SAT 97–100
[2024-03-08 07:20] LABS: Basophils # (auto) 0 10 ^3/uL (0-0.2); Basophils % (auto) 0.3 % (0.0-2.0); Eosinophils # (auto) 0 10 ^3/uL (0-0.8); Eosinophils % (auto) 0.4 % (0.0-7.0); Hemoglobin 10.4 g/dL (12.2-16.2); Lymphocytes # (auto) 0.5 10 ^3/uL (0.4-5.4); Lymphocytes % (auto) 9.7 % (10.0-50.0); Mean Corpuscular Hgb Conc. 33.6 g/dL (32.0-36.0); Mean Corpuscular Volume 86.2 fL (80.0-100.0); Monocytes # (auto) 0.8 10 ^3/uL (0-1.3); Monocytes % (auto) 13.8 % (0.0-12.0); Neutrophils # (auto) 4.2 10 ^3/uL (1.6-8.6); Neutrophils % (auto) 75.8 % (37.0-80.0); Nucleated Red Blood Cells % 0.1 %; Red Blood Cells 3.59 10^6/uL (4.0-5.20); Red Cell Distribution Width 14.6 % (11.8-14.3); White Blood Cell 5.5 10^3/uL (4.4-10.8)
[2024-03-08 07:39] LABS: Alanine Aminotransferase 42 U/L (7-40); Albumin 3.2 g/dL (3.2-4.8); Alkaline Phosphatase 109 U/L (46-116); Anion Gap 7 (5-15); Aspartate Aminotransferase 48 U/L (13-40); Bilirubin, Total 0.9 mg/dL (0.2-1.0); Calcium 8.9 mg/dL (8.5-10.1); Carbon Dioxide 23 mmol/L (20-30); Chloride 93 mmol/L (98-107); Glucose 114 mg/dL (74-106); Sodium 123 mmol/L (136-145); Total Protein 6.2 g/dL (5.7-8.2)
[2024-03-08 07:40] LABS: Blood Urea Nitrogen 27 mg/dL (9-23)
[2024-03-08] MEDS: POTASSIUM EFFERVESENT TAB 25 MEQ PO ONE (09:18)
[2024-03-08] MEDS: MORPHINE SULFATE INJ 2 MG/ml SYRG IV PRN (14:10)
[2024-03-09] VITALS (13 sets, daily range): BP systolic 100–124; BP diastolic 60–77; PULSE 80–155; RESP 16–20; TEMP 97.5–99.8; O2SAT 92–100
[2024-03-09 05:43] LABS: Basophils # (auto) 0 10 ^3/uL (0-0.2); Basophils % (auto) 0.6 % (0.0-2.0); Eosinophils # (auto) 0 10 ^3/uL (0-0.8); Eosinophils % (auto) 0.4 % (0.0-7.0); Hematocrit 30.8 % (36.0-46.0); Hemoglobin 10.4 g/dL (12.2-16.2); Lymphocytes # (auto) 0.5 10 ^3/uL (0.4-5.4); Lymphocytes % (auto) 9.1 % (10.0-50.0); Mean Corpuscular Hgb Conc. 33.7 g/dL (32.0-36.0); Mean Corpuscular Volume 86.2 fL (80.0-100.0); Monocytes # (auto) 0.8 10 ^3/uL (0-1.3); Monocytes % (auto) 13.2 % (0.0-12.0); Neutrophils # (auto) 4.6 10 ^3/uL (1.6-8.6); Neutrophils % (auto) 76.7 % (37.0-80.0); Nucleated Red Blood Cells % 0.1 %; Red Blood Cells 3.57 10^6/uL (4.0-5.20); Red Cell Distribution Width 14.7 % (11.8-14.3)
[2024-03-09 06:10] LABS: Alanine Aminotransferase 35 U/L (7-40); Albumin 3.2 g/dL (3.2-4.8); Alkaline Phosphatase 105 U/L (46-116); Anion Gap 5 (5-15); Aspartate Aminotransferase 37 U/L (13-40); BUN/Creatinine Ratio 39.7 (10.0-20.0); Bilirubin, Total 0.6 mg/dL (0.2-1.0); Blood Urea Nitrogen 29 mg/dL (9-23); Calcium 9.2 mg/dL (8.5-10.1); Carbon Dioxide 24 mmol/L (20-30); Chloride 101 mmol/L (98-107); Glucose 135 mg/dL (74-106); Potassium 3.8 mmol/L (3.5-5.1)
[2024-03-09 06:22] LABS: Sodium 130 mmol/L (136-145)
[2024-03-09] MEDS: ACETAMINOPHEN 325 MG TAB PO PRN (20:23)
[2024-03-09] MEDS: DIGOXIN (250MCG/ML) 2 ML AMPULE IV ONE (23:23)
[2024-03-10] VITALS (7 sets, daily range): BP systolic 103–125; BP diastolic 62–71; PULSE 60–128; RESP 16–21; TEMP 97.8–101.4; O2SAT 93–100
[2024-03-10 06:30] LABS: Basophils # (auto) 0.1 10 ^3/uL (0-0.2); Basophils % (auto) 0.8 % (0.0-2.0); Eosinophils # (auto) 0 10 ^3/uL (0-0.8); Eosinophils % (auto) 0.2 % (0.0-7.0); Hematocrit 32.9 % (36.0-46.0); Hemoglobin 10.6 g/dL (12.2-16.2); Lymphocytes # (auto) 0.6 10 ^3/uL (0.4-5.4); Lymphocytes % (auto) 8.4 % (10.0-50.0); Mean Corpuscular Hemoglobin 28.9 pg (28.0-32.0); Mean Corpuscular Hgb Conc. 32.2 g/dL (32.0-36.0); Mean Corpuscular Volume 89.7 fL (80.0-100.0); Monocytes # (auto) 1.4 10 ^3/uL (0-1.3); Monocytes % (auto) 18.4 % (0.0-12.0); Neutrophils # (auto) 5.5 10 ^3/uL (1.6-8.6); Neutrophils % (auto) 72.2 % (37.0-80.0); Nucleated Red Blood Cells % 0.1 %; Red Blood Cells 3.66 10^6/uL (4.0-5.20); Red Cell Distribution Width 15.4 % (11.8-14.3); White Blood Cell 7.6 10^3/uL (4.4-10.8)
[2024-03-10] MEDS: DOCUSATE SOD 100 MG CAP PO PRN (06:45)
[2024-03-10 06:59] LABS: Alanine Aminotransferase 40 U/L (7-40); Alkaline Phosphatase 101 U/L (46-116); Anion Gap 7 (5-15); BUN/Creatinine Ratio 33.3 (10.0-20.0); Blood Urea Nitrogen 24 mg/dL (9-23); Calcium 9.2 mg/dL (8.7-10.4); Carbon Dioxide 22 mmol/L (20-30); Chloride 104 mmol/L (98-107); Glucose 127 mg/dL (74-106); Potassium 3.7 mmol/L (3.5-5.1); Sodium 133 mmol/L (136-145)
[2024-03-10 07:00] LABS: Aspartate Aminotransferase 45 U/L (13-40); Bilirubin, Total 0.4 mg/dL (0.2-1.0)
[2024-03-10] MEDS: METOPROLOL TARTRATE 25 MG TAB PO SCH (21:15)
[2024-03-10] MEDS: AMIODARONE HCL 200 MG TAB PO SCH (21:15)
[2024-03-10] MEDS: ENOXAPARIN SOD 80 MG/0.8ML SYRINGE SC SCH (21:30)
[2024-03-11] VITALS (10 sets, daily range): BP systolic 85–119; BP diastolic 45–76; PULSE 72–98; RESP 16–22; TEMP 98–100.8; O2SAT 94–100
[2024-03-11 06:42] LABS: Basophils # (auto) 0.1 10 ^3/uL (0-0.2); Eosinophils # (auto) 0 10 ^3/uL (0-0.8); Eosinophils % (auto) 0.7 % (0.0-7.0); Hemoglobin 9.5 g/dL (12.2-16.2); Lymphocytes # (auto) 0.9 10 ^3/uL (0.4-5.4); Mean Corpuscular Hemoglobin 28.8 pg (28.0-32.0); Mean Corpuscular Hgb Conc. 32.6 g/dL (32.0-36.0); Mean Corpuscular Volume 88.3 fL (80.0-100.0); Monocytes # (auto) 1.2 10 ^3/uL (0-1.3); Monocytes % (auto) 18.6 % (0.0-12.0); Neutrophils # (auto) 4.2 10 ^3/uL (1.6-8.6); Neutrophils % (auto) 65.7 % (37.0-80.0); Nucleated Red Blood Cells % 0.1 %; Red Blood Cells 3.29 10^6/uL (4.0-5.20); Red Cell Distribution Width 15.2 % (11.8-14.3); White Blood Cell 6.4 10^3/uL (4.4-10.8)
[2024-03-11 07:06] LABS: Alanine Aminotransferase 33 U/L (7-40); Albumin 2.9 g/dL (3.2-4.8); Alkaline Phosphatase 96 U/L (46-116); Anion Gap 5 (5-15); Aspartate Aminotransferase 41 U/L (13-40); BUN/Creatinine Ratio 28.4 (10.0-20.0); Blood Urea Nitrogen 25 mg/dL (9-23); Calcium 8.9 mg/dL (8.7-10.4); Carbon Dioxide 26 mmol/L (20-30); Chloride 103 mmol/L (98-107); Glucose 125 mg/dL (74-106); Magnesium 1.8 mg/dL (1.6-2.6); Potassium 3.5 mmol/L (3.5-5.1); Sodium 134 mmol/L (136-145); Total Protein 5.6 g/dL (5.7-8.2)
[2024-03-11 07:26] LABS: Bilirubin, Total 0.4 mg/dL (0.2-1.0)
[2024-03-11] MEDS: SODIUM CHLORIDE 0.9% 1,000 ML IV ONE (10:57)
[2024-03-11] MEDS: MAGNESIUM SULFATE 1GM/100ML 100 ML IV ONE (15:48)
[2024-03-11] MEDS: FLECAINIDE ACETATE 50 MG TAB PO SCH (21:49)
[2024-03-12] VITALS (9 sets, daily range): BP systolic 107–121; BP diastolic 62–77; PULSE 76–110; RESP 16–20; TEMP 98.2–100.6; O2SAT 96–99
[2024-03-12 05:30] LABS: Basophils # (auto) 0 10 ^3/uL (0-0.2); Basophils % (auto) 0.7 % (0.0-2.0); Eosinophils # (auto) 0 10 ^3/uL (0-0.8); Eosinophils % (auto) 0.4 % (0.0-7.0); Hemoglobin 9.4 g/dL (12.2-16.2); Lymphocytes # (auto) 0.5 10 ^3/uL (0.4-5.4); Lymphocytes % (auto) 8.7 % (10.0-50.0); Mean Corpuscular Hemoglobin 28.8 pg (28.0-32.0); Mean Corpuscular Hgb Conc. 32.4 g/dL (32.0-36.0); Mean Corpuscular Volume 88.6 fL (80.0-100.0); Monocytes # (auto) 1.1 10 ^3/uL (0-1.3); Monocytes % (auto) 17.1 % (0.0-12.0); Neutrophils # (auto) 4.5 10 ^3/uL (1.6-8.6); Neutrophils % (auto) 73.1 % (37.0-80.0); Red Blood Cells 3.27 10^6/uL (4.0-5.20); Red Cell Distribution Width 15.2 % (11.8-14.3); White Blood Cell 6.1 10^3/uL (4.4-10.8)
[2024-03-12 05:49] LABS: Anion Gap 6 (5-15); Calcium 8.5 mg/dL (8.7-10.4); Carbon Dioxide 25 mmol/L (20-30); Chloride 104 mmol/L (98-107); Potassium 3.8 mmol/L (3.5-5.1); Sodium 135 mmol/L (136-145)
[2024-03-12 05:55] LABS: Glucose 125 mg/dL (74-106)
[2024-03-12 05:56] LABS: BUN/Creatinine Ratio 23.4 (10.0-20.0); Blood Urea Nitrogen 18 mg/dL (9-23)
[2024-03-12] MEDS: APIXABAN 2.5 MG TAB PO SCH (09:41)
[2024-03-12 11:03] LABS: COVID19 ANTIGEN SOFIA FIA NEGATIVE (NEGATIVE)
[2024-03-12] MEDS ORDERED: MORPHINE SULFATE 4 MG/ML SYR/VIAL IV PRN (22:15)
[2024-03-13 05:00] VITALS: BP 111/74; PULSE 83; RESP 20; TEMP 98.3; O2SAT 96
[2024-03-13 08:00] VITALS: PULSE 80; PULSE 90; RESP 17
[2024-03-13 08:45] VITALS: BP 110/75; PULSE 87; RESP 16; TEMP 99; O2SAT 99
[2024-03-13] MEDS ORDERED: HYDROcodone-ACET 5/325MG TAB PO PRN (09:30)
[2024-03-13] MEDS: FUROSEMIDE 40 MG/4 ML VIAL IV ONE (10:30)
[2024-03-13 12:50] VITALS: BP 95/72; PULSE 109; RESP 18; TEMP 99.1; O2SAT 93
[2024-03-13 14:06] VITALS: BP 110/75; PULSE 115; TEMP 37.3
== END 2024-03-13 16:30 | DRG 644 ==
LOC: EDBD 08:41 → ER 08:41 → EDUNIT# 08:41 → TELE 14:29 → TELE-WESTW 22:31
PROVIDERS: ADMIT Nurse Practitioner Family; ATTEND Family Medicine
DX: E22.2 Syndrome of inappropriate secretion of antidiuretic hormone (principal); S32.029A Unspecified fracture of second lumbar vertebra, initial encounter for closed fracture; S32.592A Other specified fracture of left pubis, initial encounter for closed fracture; S92.332A Displaced fracture of third metatarsal bone, left foot, initial encounter for closed fracture; S92.342A Displaced fracture of fourth metatarsal bone, left foot, initial encounter for closed fracture; E87.5 Hyperkalemia; J44.9 Chronic obstructive pulmonary disease, unspecified; E03.9 Hypothyroidism, unspecified; C43.9 Malignant melanoma of skin, unspecified; F32.A Depression, unspecified; W18.39XA Other fall on same level, initial encounter; Z20.822 Contact with and (suspected) exposure to COVID-19; I48.0 Paroxysmal atrial fibrillation; I95.9 Hypotension, unspecified; I10 Essential (primary) hypertension; Z85.820 Personal history of malignant melanoma of skin; Z88.1 Allergy status to other antibiotic agents; Z88.0 Allergy status to penicillin; Z79.899 Other long term (current) drug therapy; Z80.1 Family history of malignant neoplasm of trachea, bronchus and lung; Y93.89 Activity, other specified; Y92.89 Other specified places as the place of occurrence of the external cause; Y99.8 Other external cause status; Z87.891 Personal history of nicotine dependence; Z80.0 Family history of malignant neoplasm of digestive organs; Z80.3 Family history of malignant neoplasm of breast; Z80.8 Family history of malignant neoplasm of other organs or systems; Z80.49 Family history of malignant neoplasm of other genital organs; Z86.011 Personal history of benign neoplasm of the brain
CPT/HCPCS: 36415; 70450; 71045; 72131; 72192; 73502; 73630; 80048; 80053; 81001; 82533; 82550; 82570; 83036; 83735; 83930; 83935; 84100; 84295; 84300; 84443; 84484; 84550; 85025; 87426; 93005; 93306; 97163; 99291; G0378

== ENCOUNTER 2024-03-17 18:32 | Emergency (ER) | payer OTHER, MEDICAID ==
[~2024-03-17] VITALS: Ht 160 cm; Wt 72.7 kg
[~2024-03-17 18:32] MED LIST changes: +LEVO112T4 PO; +SERT-206 PO; +TRAM50TA2 PO; +[UNRECOGNIZED DRUG - CODE] PO
[2024-03-17] MEDS ORDERED: EPINEPHrine HCL 1 MG/10 ML SYRG IV ONE (18:33)
[2024-03-17 18:36] VITALS: BP 0/0; PULSE 0; RESP 0; O2SAT 0
== END 2024-03-17 19:03 | disposition short-term general hospital (02) ==
LOC: EDBD 18:32 → ER 18:32
DX: I46.9 Cardiac arrest, cause unspecified (principal); R06.89 Other abnormalities of breathing; Z88.0 Allergy status to penicillin; Z88.1 Allergy status to other antibiotic agents; J44.9 Chronic obstructive pulmonary disease, unspecified
CPT/HCPCS: 31500; 92950; 99285; J0171